=== PATIENT | male | born 1935 | race Caucasian/White ===

== ENCOUNTER → 2016-11-25 | Outpatient (CLI) | payer OTHER | LOC: FLAB 11:46 | PROVIDERS: ATTEND Family Medicine | DX: R06.02 Shortness of breath (principal) ==

== ENCOUNTER → 2017-01-12 | Outpatient (CLI) | payer OTHER | LOC: FIMAGING 08:47 | PROVIDERS: ATTEND Family Medicine | DX: J45.909 Unspecified asthma, uncomplicated (principal); I25.10 Atherosclerotic heart disease of native coronary artery without angina pectoris ==

== ENCOUNTER 2017-02-08 06:14 | Emergency (ER) | payer OTHER ==
[2017-02-08 06:24] VITALS: TEMP 97.7
--- NOTE | 2017-02-08 06:44 | EDPHY ---
H & P Stated Complaint: SOB while sleeping Source: Patient Exam Limitations: No limitations - Personal History Current Tetanus/Diphtheria Vaccine: Unsure Current Tetanus Diphtheria and Acellular Pertussis (TDAP): Unsure - Medical/Surgical History Hx Asthma: No Hx Chronic Respiratory Disease: No Hx Diabetes: Yes Hx Cardiac Disease: Yes Hx Renal Disease: No Hx Cirrhosis: No Hx Alcoholism: No Hx HIV/AIDS: No Hx Splenectomy or Spleen Trauma: No Other PMH: HTN, hypothyroid, ulcerative colitis, diabetes - Social History Smoking Status: Former smoker Time Seen by Provider: 02/08/17 06:24 HPI/ROS: HPI The patient presents with multiple episodes of shortness of breath over the course of this evening that have prevented him from sleeping. He feels like as soon as he falls asleep he stops breathing in awake and short of breath. He tried sleeping in a chair, however this did not help. He now feels fine. He has had ongoing dyspnea over the last several months. He is being treated by his primary care doctor for this and has a nebulizer for albuterol and also Singulair. He has been feeling better with these treatments. He has been evaluated by Card[facility] and had echocardiogram performed on January 31 with demonstrated EF of 55% with [id number] MR. He also had a Holter monitor performed on January 20 and this demonstrated normal sinus rhythm with frequent type 1 Wenckebach occurring. He has had a nuclear scan performed in December of 2014 which was relatively normal. He is awaiting a pulmonology appointment with Dr. Coyle on March 09. REVIEW OF SYSTEMS Constitutional: No fever, no chills. Eyes: No discharge. ENT: No sore throat. Cardiovascular: No chest pain, no palpitations. Respiratory: No cough, no shortness of breath. Gastrointestinal: No abdominal pain, no vomiting. Genitourinary: No hematuria. Musculoskeletal: No back pain. Skin: No rashes. Neurological: No headache. PMHx: Hypertension, hyperlipidemia, diabetes, hypothyroidism, ulcerative colitis Soc Hx: Former smoker, housed PHYSICAL General Appearance: Alert, no distress Eyes: Pupils equal and round no pallor or injection ENT, Mouth: Mucous membranes moist Respiratory: There are no retractions, lungs are clear to auscultation Cardiovascular: Regular rate and rhythm Gastrointestinal: Abdomen is soft and non-tender, no masses, bowel sounds normal Neurological: A&O, moves all extremities Skin: Warm and dry, no rashes Musculoskeletal: Neck is supple non tender Extremities: symmetrical, full range of motion Psychiatric: Patient is oriented X 3, there is no agitation (Latrice Montilla) Constitutional: Initial Vital Signs Temperature (C) 36.5 C 02/08/17 06:21 Heart Rate 86 02/08/17 06:21 Respiratory Rate 16 02/08/17 06:21 Blood Pressure 127/84 H 02/08/17 06:21 O2 Sat (%) 95 02/08/17 06:21 O2 Delivery Mode Room Air Allergies/Adverse Reactions: piperacillin sodium [From Zosyn] Allergy (Unknown, Verified 09/05/10 18:22) Hives tazobactam sodium [From Zosyn] Allergy (Unknown, Verified 09/05/10 18:22) Hives Sulfa (Sulfonamide Antibiotics) Allergy (Verified 02/08/17 06:19) Home Medications: Medication Instructions Recorded Aspirin [Aspirin 81mg (*)] 81 mg PO HS 05/10/16 Omeprazole [Prilosec 20 mg] 20 mg PO DAILY PRN 05/10/16 metFORMIN HCL [Glucophage 500 mg 500 mg PO BIDMEAL 05/10/16 (*)] Levothyroxine [Synthroid 75 mcg 100 mcg PO DAILY06 #30 tab 05/11/16 (*)] Lisinopril [Zestril 2.5 mg (*)] 2.5 mg PO HS 05/11/16 Multivitamins [Multivitamin (*)] 1 each PO DAILY 05/11/16 Lane-3 Fatty Acids [Fish Oil 1000 1,000 mg PO DAILY 05/11/16 mg (*)] Simvastatin [Zocor] 20 mg PO HS 05/11/16 Albuterol 02/08/17 Singulair 02/08/17 Medical Decision Making - Diagnostics EKG Interpretation: EKG: Complete interpretation has been separately recorded in the [facility] archive. Summary impression: Mobitz type 1 av block (Latrice Montilla) Imaging Results: Imaging Impressions Chest X-Ray 02/08/17 06:37 Impression: 1. No pneumonia or pulmonary edema. 2. Consider chest two views when the patient's medical condition permits. Chest/Thorax CTA 02/08/17 07:18 Impression: 1. No definite pulmonary thromboemboli. 2. Atherosclerotic aorta without aneurysm or dissection. 3. Coronary atherosclerosis. 4. Chronic bronchitis/airways disease. 5. No pneumonia, pleural effusion or pneumothorax. 6. On the sales engagement manager view, there are dilated loops of small bowel with air-fluid levels which may represent ileus or small bowel obstruction. Findings and recommendations discussed with Emergency Department physician, Nighat Sabillon at 0842 hour, 02/08/2017. Final report concurs with initial preliminary interpretation. Chest x-ray one view shows reactive airways disease, no infiltrate, interpreted by me, radiology interpretation is pending. (Latrice Montilla) ED Course/Re-evaluation: This patient was signed over to me at shift change to check the CT pulmonary angiogram. If normal the patient can be discharged home. CT pulmonary angiogram is normal and the patient is asymptomatic. He already has an appointment to follow up with a dental coordinator. I feel that this is an appropriate plan for the patient. (Nighat Sabillon) Differential Diagnosis: This is an 81-year-old male with hypertension, hyperlipidemia, diabetes, hypothyroidism who presents from home with shortness of breath at night. Feels that when he falls asleep he awakens and has to catch his breath. He has been evaluated for dyspnea for the last several months by his primary care doctor and Cardiology. Is currently using albuterol and Symbicort for his symptoms. This seems to be helping. He has never had symptoms at night before that is what brought him into the emergency room. He has undergone recent Holter monitor testing which did reveal a Mobitz type 1 second-degree heart block. Recent echo shows a normal ejection fraction. Differential diagnosis includes obstructive sleep apnea, reactive airways disease, anxiety, less likely ACS or PE. Plan for EKG, chest x-ray, basic laboratory testing including troponin and D- dimer in the emergency room. At approximately 7:00 a.m., the case was signed out to the oncoming provider Dr. Sabillon. The patient is awaiting his laboratory testing. If it is normal, he can be discharged home. (Latrice Montilla) - Data Points Laboratory Results: Laboratory Results 02/08/17 06:55 02/08/17 06:55 02/08/17 02/08/17 02/08/17 06:55 06:55 06:55 WBC 7.10 10^3/uL 10^3/uL (3.80-9.50) RBC 4.89 10^6/uL 10^6/uL (4.40-6.38) Hgb 14.3 g/dL g/dL (13.7-17.5) Hct 42.3 % % (40.0-51.0) MCV 86.5 fL fL (81.5-99.8) MCH 29.2 pg pg (27.9-34.1) MCHC 33.8 g/dL g/dL (32.4-36.7) RDW 14.7 % % (11.5-15.2) Plt Count 289 10^3/uL 10^3/uL (150-400) MPV 10.3 fL fL (8.7-11.7) Neut % (Auto) 76.3 % H % (39.3-74.2) Lymph % (Auto) 10.7 % L % (15.0-45.0) [place] % (Auto) 8.9 % % (4.5-13.0) Eos % (Auto) 3.1 % % (0.6-7.6) Baso % (Auto) 0.7 % % (0.3-1.7) Nucleat RBC Rel Count 0.0 % % (0.0-0.2) Absolute Neuts (auto) 5.42 10^3/uL 10^3/uL (1.70-6.50) Absolute Lymphs (auto) 0.76 10^3/uL L 10^3/uL (1.00-3.00) Absolute Monos (auto) 0.63 10^3/uL 10^3/uL (0.30-0.80) Absolute Eos (auto) 0.22 10^3/uL 10^3/uL (0.03-0.40) Absolute Basos (auto) 0.05 10^3/uL 10^3/uL (0.02-0.10) Absolute Nucleated RBC 0.00 10^3/uL 10^3/uL (0-0.01) Immature Gran % 0.3 % % (0.0-1.1) Immature Gran # 0.02 10^3/uL 10^3/uL (0.00-0.10) D-Dimer 0.89 ug/mLFEU H ug/mLFEU (0.00-0.50) Sodium 140 mEq/L mEq/L (134-144) Potassium 4.4 mEq/L mEq/L (3.5-5.2) Chloride 107 mEq/L mEq/L (97-110) Carbon Dioxide 20 mEq/l L mEq/l (22-31) Anion Gap 13 mEq/L mEq/L (8-16) BUN 15 mg/dL mg/dL (7-23) Creatinine 1.1 mg/dL mg/dL (0.7-1.3) Estimated GFR > 60 Glucose 114 mg/dL H mg/dL (70-100) Calcium 9.3 mg/dL mg/dL (8.5-10.4) Troponin I < 0.012 ng/mL ng/mL (0-0.034) Medications Given: Discontinued Medications Sodium Chloride (Ns) 1,000 mls @ 0 mls/hr IV ONCE ONE PRN Reason: Wide Open Stop: 02/08/17 08:25 Last Admin: 02/08/17 07:40 Dose: 1,000 mls Departure - Departure Disposition: Home, Routine, Self-Care Clinical Impression: Shortness of breath Condition: Good Instructions: Dyspnea (ED) Additional Instructions: Do not take metformin for 48 hours. Please follow-up with the dental coordinator. You should return to the emergency room if your worse in any way. Referrals: IVAN IVY [Primary Care Provider] - As per Instructions
[2017-02-08 07:04] LABS: % IMMATURE GRANULYOCYTES 0.3 % (0.0-1.1); ABSOLUTE IMMATURE GRANULOCYTES 0.02 10^3/uL (0.00-0.10); ADD DIFF? NO; ADD MORPH? NO; ADD SCAN? NO; ATYPICAL LYMPHOCYTE FLAG 20 (0-99); FRAGMENT RBC FLAG 0 (0-99); HEMATOCRIT 42.3 % (40.0-51.0); HEMOGLOBIN 14.3 g/dL (13.7-17.5); LEFT SHIFT FLG 0 (0-99); LIPEMIA HEMOLYSIS FLAG 90 (0-99); MEAN CELL HEMOGLOBIN 29.2 pg (27.9-34.1); MEAN CELL HEMOGLOBIN CONCENTR. 33.8 g/dL (32.4-36.7); MEAN CELL VOLUME 86.5 fL (81.5-99.8); MEAN PLATELET VOLUME 10.3 fL (8.7-11.7); PLATELET CLUMPS FLAG 10 (0-99); PLATELET COUNT 289 10^3/uL (150-400); RED BLOOD CELL COUNT 4.89 10^6/uL (4.40-6.38); RED CELL DISTRIBUTION WIDTH 14.7 % (11.5-15.2)
[2017-02-08 07:16] LABS: ANION GAP 13 mEq/L (8-16); CALCIUM 9.3 mg/dL (8.5-10.4); CARBON DIOXIDE 20 mEq/l (22-31); CHLORIDE 107 mEq/L (97-110); CREATININE 1.1 mg/dL (0.7-1.3); GLOMERULAR FILTRATION RATE > 60; GLUCOSE 114 mg/dL (70-100); POTASSIUM 4.4 mEq/L (3.5-5.2); SODIUM 140 mEq/L (134-144)
[2017-02-08] MEDS ORDERED: IOPAMIDOL (ISOVUE 370) 100 ML BTL IV ONE (07:20)
[2017-02-08 07:28] LABS: TROPONIN I < 0.012 ng/mL (0-0.034)
--- NOTE | 2017-02-08 07:38 | CPEKG ---
Heart Rate: 62 RR Interval: 968 QRSD Interval: 84 QT Interval: 412 QTC Interval: 419 P [place]: 52 QRS [place]: -12 T Wave [place]: 17 EKG Severity - ABNORMAL ECG - EKG Impression: SINUS RHYTHM EKG Impression: MOBITZ I AV BLOCK (WENCKEBACH) EKG Impression: LOW VOLTAGE THROUGHOUT Electronically Signed By: Nighat Sabillon 08-Feb-2017 15:15:02
[2017-02-08] MEDS ORDERED: NS 1,000 ML IV ONE (08:24)
[2017-02-08 09:10] VITALS: BP 131/57; PULSE 81; RESP 16; O2SAT 90
== END 2017-02-08 09:10 | disposition home or self-care (01) ==
LOC: EEVIPCON 06:14
DX: R06.02 Shortness of breath (principal); I10 Essential (primary) hypertension; E11.65 Type 2 diabetes mellitus with hyperglycemia; Z87.891 Personal history of nicotine dependence; Z79.82 Long term (current) use of aspirin; Z79.84 Long term (current) use of oral hypoglycemic drugs
CPT/HCPCS: 71010; 71275; 93005; 96360; 99285; Q9967

== ENCOUNTER → 2018-06-13 | Outpatient (CLI) | payer OTHER ==
[~2018-06-13] MED LIST: IOPAMIDOL (ISOVUE-300) 100 ML BTL ONE
== END ==
LOC: FIMAGING 08:52
PROVIDERS: ATTEND Internal Medicine Gastroenterology
DX: R10.31 Right lower quadrant pain (principal)
CPT/HCPCS: 74177; Q9967; 82565-PO

== ENCOUNTER 2018-06-14 12:46 | Inpatient (IN) | payer OTHER ==
[2018-06-14] MEDS ORDERED: NS 1,000 ML IV ONE ×2 (12:52→16:44)
[2018-06-14] MEDS ORDERED: ONDANSETRON 4 MG/2 ML VIAL IVP ONE (12:52)
--- NOTE | 2018-06-14 12:56 | EDPHY ---
H & P Time Seen by Provider: 06/14/18 12:57 HPI/ROS: CHIEF COMPLAINT: Abdominal pain, hypotension, vomiting diarrhea HISTORY OF PRESENT ILLNESS: Patient is an 82-year-old man with a history of ileostomy secondary to ulcerative colitis [address] Sommer. Also history of bladder cancer, chronic kidney disease and borderline diabetes. He has been having abdominal pain for the last few days and yesterday had an outpatient CT scan ordered by Dr. Patricia that revealed numerous loops of the bowel the with blurred margins and surrounding edema and the extra luminal air. Also free air in the mid pelvis. The patient's son states that he went over to check on him today and found that the ostomy bag had come open and there was stool all over the house and the patient was slipping and falling in it. The patient he seems confused. No history of fever. The patient states he did vomit once yesterday and today. He complains primarily of abdominal pain. He denies chest pain or shortness of breath. Severity: Moderate Modifying factors: None REVIEW OF SYSTEMS: Constitutional: denies: chills, fever, recent illness, recent injury EENTM: denies: blurred vision, double vision, nose congestion Respiratory: denies: cough, shortness of breath Cardiac: denies: chest pain, irregular heart rate, lightheadedness, palpitations Gastrointestinal/Abdominal: See HPI Genitourinary: denies: dysuria, frequency, hematuria, pain Musculoskeletal: denies: joint pain, muscle pain Skin: denies: lesions, rash, jaundice, bruising Neurological: denies: headache, numbness, paresthesia, tingling, dizziness, weakness Hematologic/Lymphatic: denies: blood clots, easy bleeding, easy bruising Immunologic/allergic: denies: HIV/AIDS, transplant 10 systems reviewed and negative except as noted EXAM: GENERAL: Well-appearing, well-nourished and in no acute distress. HEAD: Atraumatic, normocephalic. EYES: Pupils equal round and reactive to light, extraocular movements intact, sclera anicteric, conjunctiva are normal. ENT: TMs normal, nares patent, oropharynx clear without exudates. Moist mucous membranes. NECK: Normal range of motion, supple without lymphadenopathy or JVD. LUNGS: Breath sounds clear to auscultation bilaterally and equal. No wheezes rales or rhonchi. HEART: Regular rate and rhythm without murmurs, rubs or gallops. ABDOMEN: Mild tenderness diffusely. Ostomy in place. Dark loose stool with the clip gone from the end of the bag. BACK: No CVA tenderness, no spinal tenderness, step-offs or deformities EXTREMITIES: Normal range of motion, no pitting or edema. No clubbing or cyanosis. NEUROLOGICAL: Cranial nerves II through XII grossly intact. Normal speech, normal gait. 5/5 strength, normal movement in all extremities, normal sensation , normal reflexes PSYCH: Normal mood, normal affect. SKIN: Warm, dry, normal turgor, no visible rashes or lesions. Source: Patient, EMS, Old records Exam Limitations: No limitations - Medical/Surgical History Hx Asthma: No Hx Chronic Respiratory Disease: No Hx Diabetes: Yes Hx Cardiac Disease: Yes Hx Renal Disease: No Hx Cirrhosis: No Hx Alcoholism: No Hx HIV/AIDS: No Hx Splenectomy or Spleen Trauma: No Other PMH: HTN, hypothyroid, ulcerative colitis, diabetes - Family History Significant Family History: No pertinent family hx - Social History Smoking Status: Former smoker Alcohol Use: Sober Drug Use: None Constitutional: Initial Vital Signs Temperature (C) 36.1 C 06/14/18 13:06 Heart Rate 103 H 06/14/18 13:06 Respiratory Rate 36 H 06/14/18 13:06 Blood Pressure 88/58 L 06/14/18 13:06 O2 Sat (%) 93 06/14/18 13:06 O2 Delivery Mode Room Air Allergies/Adverse Reactions: piperacillin sodium [From Zosyn] Allergy (Unknown, Verified 09/05/10 18:22) Hives tazobactam sodium [From Zosyn] Allergy (Unknown, Verified 09/05/10 18:22) Hives Sulfa (Sulfonamide Antibiotics) Allergy (Verified 02/08/17 06:19) Home Medications: Medication Instructions Recorded metFORMIN HCL [Glucophage 500 mg 500 mg PO BIDMEAL 05/10/16 (*)] Levothyroxine [Synthroid 75 mcg 100 mcg PO DAILY06 #30 tab 05/11/16 (*)] Lisinopril [Zestril 2.5 mg (*)] 2.5 mg PO HS 05/11/16 Simvastatin [Zocor] 20 mg PO HS 05/11/16 Albuterol 02/08/17 Singulair 02/08/17 Medical Decision Making ED Course/Re-evaluation: The patient is hypotensive and tachycardic. We began resuscitation. I discussed the CT scan with Dr. Sommer who recommends admission ICU to the medical service and he will come to evaluate. 1:15 p.m. I spoke with the hospital service who will admit to the ICU. 1:[address] Sommer is here in the ER evaluating the patient. Differential Diagnosis: Partial list of the Differential diagnosis considered include but were not limited to; bowel perforation, ischemia, obstruction, dehydration, sepsis and although unlikely based on the history and physical exam, I also considered volvulus. Critical Care Time: Critical care time spent by me, Dr. Ladd exclusive with this patient was 35 minutes, exclusive of the PA time exclusive of procedures. The organ system that was at risk was gastrointestinal and I gave IV fluids, resuscitation, consultation and admission to prevent worsening of the patient's condition - Data Points Medications Given: Ceftriaxone Sodium/Dextrose (Rocephin 1 Gm (Premix)) 50 mls @ 100 mls/hr IV DAILY NOE PRN Reason: Protocol Stop: 07/14/18 13:29 Last Admin: 06/14/18 13:30 Dose: 50 mls Metronidazole/Sodium Chloride (Flagyl 500 Mg (Premix)) 100 mls @ 100 mls/hr IV Q8HRS NOE PRN Reason: Protocol Stop: 07/14/18 13:59 Last Admin: 06/14/18 13:50 Dose: 100 mls Discontinued Medications Sodium Chloride (Ns) 1,000 mls @ 0 mls/hr IV EDNOW ONE; Wide Open PRN Reason: Protocol Stop: 06/14/18 12:53 Last Admin: 06/14/18 13:04 Dose: 1,000 mls Sodium Chloride (Ns) 1,900 mls @ 3,800 mls/hr 30 ml/kg infuse over 30 min ( 1900 ml) IV EDNOW ONE PRN Reason: Protocol Stop: 06/14/18 13:42 Last Admin: 06/14/18 13:49 Dose: 1,900 mls Departure - Departure Disposition: [facility] Acute Condition: Critical
[2018-06-14] MEDS ORDERED: NS 1,900 ML IV ONE (13:13)
[2018-06-14] MEDS ORDERED: HYDROmorphONE/DILAUDID 1 MG/ML INJ IVP PRN (13:52)
[2018-06-14] MEDS ORDERED: ACETAMINOPHEN 650 MG SUPP PR PRN (13:52)
[2018-06-14] MEDS ORDERED: ONDANSETRON 4 MG/2 ML VIAL IVP PRN (13:52)
[2018-06-14 14:03] LABS: PLATELET COUNT 300 10^3/uL (150-400)
[2018-06-14 14:12] LABS: INR 1.33 (0.83-1.16); PROTIME(PATIENT) 16.7 SEC (12.0-15.0)
--- NOTE | 2018-06-14 15:08 | PDGENHP ---
History and Physical - Chief Complaint Abdominal Pain - History of Present Illness Manuel Woody is a 82 yo M with a PMHx of UC s/p ileostomy, bladder cancer, CKF, DM who presents to [facility] for abdominal pain. History obtained from patient and family, son/daughter in law at bedside. They report that patient has been experiencing abdominal pain for months. They report that he has been seen by multiple physicians without any diagnosis or improvement. Patient reports pain is diffuse, non-radiating, sharp in quality, no changed with food intake. He denies any diarrhea, constipation, melena, hematochezia. He did have episode of nausea with non-bilious, non-bloody emesis. He denies any chest pain, SOB, fevers, dysuria, cough. He does reports having chills. History Information - Allergies/Home Medication List Allergies/Adverse Reactions: piperacillin sodium [From Zosyn] Allergy (Unknown, Verified 09/05/10 18:22) Hives tazobactam sodium [From Zosyn] Allergy (Unknown, Verified 09/05/10 18:22) Hives Sulfa (Sulfonamide Antibiotics) Allergy (Verified 02/08/17 06:19) Home Medications: metFORMIN HCL [Glucophage 500 mg (*)] 500 mg PO BIDMEAL 05/10/16 [Last Taken 10/21 18:00] Simvastatin [Zocor] 20 mg PO HS 05/11/16 [Last Taken 05/10/16] Montelukast Sodium [Singulair 10 mg (*)] 10 mg PO DAILY@1800 02/08/17 [Last Taken Unknown] Lisinopril [Zestril 5 mg (*)] 5 mg PO DAILY 06/14/18 [Last Taken Unknown] I have personally reviewed and updated: family history, medical history, social history, surgical history - Past Medical History diabetes type 2 Additional medical history: CKD, UC, Bladder cancer, CKD - Surgical History Additional surgical history: UC s/p ileostomy - Family History Positive for: non-pertinent - Social History Smoking Status: Former smoker Review of Systems Review of Systems: ROS: 10pt was reviewed & negative except for what was stated in HPI & below Physical Exam Physical Exam: Temp Pulse Resp BP Pulse Ox 36.5 C 111 H 22 H 99/63 L 98 06/14/18 14:29 06/14/18 14:29 06/14/18 14:29 06/14/18 14:29 06/14/18 14:29 Constitutional: chronically ill appearing, cachectic Eyes: anicteric sclera Ears, Nose, Mouth, Throat: dry mucous membranes Cardiovascular: tachycardia Respiratory: no respiratory distress, clear to auscultation Gastrointestinal: tenderness, other (Ileostomy in place with stool ), No guarding, No rebound, No distension Genitourinary: no bladder tenderness Skin: other (Pale), No normal color Musculoskeletal: no muscle tenderness Neurologic: AAOx3 Psychiatric: interacting appropriately Lab Data & Imaging Review 06/15/18 04:20 06/15/18 04:20 WBC 13.71 10^3/uL (3.80-9.50) H 06/14/18 13:40 RBC 5.47 10^6/uL (4.40-6.38) 06/14/18 13:40 Hgb 15.4 g/dL (13.7-17.5) 06/14/18 13:40 Hct 46.3 % (40.0-51.0) 06/14/18 13:40 MCV 84.6 fL (81.5-99.8) 06/14/18 13:40 MCH 28.2 pg (27.9-34.1) 06/14/18 13:40 MCHC 33.3 g/dL (32.4-36.7) 06/14/18 13:40 RDW 14.7 % (11.5-15.2) 06/14/18 13:40 Plt Count 300 10^3/uL (150-400) 06/14/18 13:40 MPV 11.4 fL (8.7-11.7) 06/14/18 13:40 Neut % (Auto) Not Reported 06/14/18 13:40 Lymph % (Auto) Not Reported 06/14/18 13:40 [place] % (Auto) Not Reported 06/14/18 13:40 Eos % (Auto) Not Reported 06/14/18 13:40 Baso % (Auto) Not Reported 06/14/18 13:40 Nucleat RBC Rel Count Not Reported 06/14/18 13:40 Absolute Neuts (auto) Not Reported 06/14/18 13:40 Absolute Lymphs (auto) Not Reported 06/14/18 13:40 Absolute Monos (auto) Not Reported 06/14/18 13:40 Absolute Eos (auto) Not Reported 06/14/18 13:40 Absolute Basos (auto) Not Reported 06/14/18 13:40 Absolute Nucleated RBC Not Reported 06/14/18 13:40 Immature Gran % Not Reported 06/14/18 13:40 Seg Neutrophils % 72.9 % 06/14/18 13:40 Band Neutrophils % 9.4 % 06/14/18 13:40 Lymphocytes % 5.2 % 06/14/18 13:40 Monocytes % 10.4 % 06/14/18 13:40 Eosinophils % 0.0 % 06/14/18 13:40 Basophils % 0.0 % 06/14/18 13:40 Metamyelocytes % 2.1 % 06/14/18 13:40 Myelocytes % 0.0 % 06/14/18 13:40 Promyelocytes % 0.0 % 06/14/18 13:40 Blast Cells % 0.0 % 06/14/18 13:40 Immature Gran # Not Reported 06/14/18 13:40 Absolute Seg Neuts 9.94 10^3/uL (1.70-6.50) H 06/14/18 13:40 Absolute Band Neuts 1.28 10^3/uL (0.00-0.70) H 06/14/18 13:40 Absolute Lymphocytes 0.71 10^3/uL (1.00-3.00) L 06/14/18 13:40 Absolute Monocytes 1.42 10^3/uL (0.30-0.80) H 06/14/18 13:40 Absolute Eosinophils 0.00 10^3/uL (0.03-0.40) L 06/14/18 13:40 Absolute Basophils 0.00 10^3/uL (0.02-0.10) L 06/14/18 13:40 Absolute Metamyelocyte 0.29 10^3/mL (0.00-0.00) H 06/14/18 13:40 Absolute Myelocytes 0.00 10^3/mL (0.00-0.00) 06/14/18 13:40 Absolute Promyelocytes 0.00 10^3/uL (0.00-0.00) 06/14/18 13:40 Absolute Plasma Cells 0.00 10^3/uL (0.00-0.00) 06/14/18 13:40 Nucleated RBCs 0 /100 WBC (0-0) 06/14/18 13:40 Absolute Blast Cells 0.00 10^3/uL (0.00-0.00) 06/14/18 13:40 Plasma Cells % 0.0 % 06/14/18 13:40 Platelet Estimate ADEQUATE (ADEQ) 06/14/18 13:40 Echinocytes 1+ H 06/14/18 13:40 PT 16.7 SEC (12.0-15.0) H 06/14/18 13:40 INR 1.33 (0.83-1.16) H 06/14/18 13:40 APTT 22.4 SEC (23.0-38.0) L 06/14/18 13:40 VBG Lactic Acid 9.4 mmol/L (0.7-2.1) H 06/14/18 13:40 Sodium REJ 06/14/18 13:40 Potassium REJ 06/14/18 13:40 Chloride REJ 06/14/18 13:40 Carbon Dioxide REJ 06/14/18 13:40 Anion Gap REJ 06/14/18 13:40 BUN REJ 06/14/18 13:40 Creatinine REJ 06/14/18 13:40 Estimated GFR REJ 06/14/18 13:40 Glucose REJ 06/14/18 13:40 Calcium REJ 06/14/18 13:40 Total Bilirubin REJ 06/14/18 13:40 Conjugated Bilirubin REJ 06/14/18 13:40 Unconjugated Bilirubin REJ 06/14/18 13:40 AST REJ 06/14/18 13:40 ALT REJ 06/14/18 13:40 Alkaline Phosphatase REJ 06/14/18 13:40 Total Protein REJ 06/14/18 13:40 Albumin REJ 06/14/18 13:40 Lipase REJ 06/14/18 13:40 Assessment & Plan Assessment: Septic Shock - Likely source- intra-abdominal free air, likely bowel perforation seen on CT - MAP 69 on admission with tachycardia, leukocytosis - LA 9.4 on admission - S/p 30 cc/kg IVF (1.9 L) in ED, plus 1 additional L - Additional IVF PRN - Placed order for PICC placement, if MAP <65 start Levophed for pressor support - S/p Ceftriaxone/Flagyl in ED, will continue for now - Blood cultures x2 collected in ED, f/u results - Surgery consulted in ED, f/u recommendations - Continue to trend LA q4 hours Free Air in Abdomen - Seen on CT performed yesterday - Surgery consulted for further management of likely bowel perforation - NPO for now - Tx of sepsis as above ADENIKE on CKD - Cr 2.5 on admission, baseline 1.1-1.3 - In setting of septic shock, hypovolemic - Continue to monitor BMP, I/O, avoid nephrotoxic agents UC s/p Ileostomy - Not currently on medical tx per chart review - Management of bowel perforation as above Hypothyroidism - Continue home Levothyroxine once able to tolerate PO - Will check TSH HTN - Holding BP medications (Lisinopril) given sepsis as above T2DM - Holding home Metformin - Order SSI when able to tolerate diet HLD - Continue home Simvastatin when able to tolerate diet FEN: NPO, s/p 2.9 L in ED, additional IVF PRN Code: FULL Dispo: Admit to ICU A total of 45 minutes of critical care time was spent in the evaluation and management of this patient.
[2018-06-14] MEDS ORDERED: ALTEPLASE 2 MG VIAL IVP PRN (15:52)
[2018-06-14] MEDS: NS 1,000 ML IV SCH ×2 (16:30→21:17)
--- NOTE | 2018-06-14 16:49 | GCON ---
CRITICAL-CARE CONSULTATION. DATE OF CONSULTATION: 06/14/2018 HISTORY OF PRESENT ILLNESS: This patient is an 82-year-old male who has history of ulcerative coliti s and underwent colectomy in the past with ileostomy placement, who has been having ongoing abdominal pain over the last several weeks. Part of his outpatient workup included a CT scan that was perform ed yesterday that showed areas of blurred margins and edema along with free air. However, the patien t did not have any trouble apparently until today when he had increasing abdominal pain. His ileosto my bag fell off. There was stool all over his apartment. His family found him that way. He was bro ught to the emergency department where his blood pressure was 88/58, was given IV fluids, responded q uite well to a blood pressure 119/57. He was afebrile, but he had a white count of 13.7 and a lactat e of 9.4. He was evaluated by Dr. Sommer and apparently is scheduled for surgery later on this evenin g. He denies any pulmonary or cardiac symptoms. He has not been taking much oral intake as of late and feels that he has been dehydrated. REVIEW OF SYSTEMS: Otherwise negative. PAST MEDICAL HISTORY: Includes: 1. Bladder cancer in the past. 2. Ulcerative colitis. 3. Borderline diabetes. 4. Hypertension. 5. Hyperlipidemia. 6. Hypothyroidism. 7. Gastroesophageal reflux disease. 8. Second-degree heart block. 9. Seizure in the distant past. 10. Chronic kidney disease, not well documented but listed. 11. Allergic rhinitis and a right lower lobe granuloma seen previously. PAST SURGICAL HISTORY: Includes colectomy, ileostomy about 20 years ago, shoulder surgery, bladder t umor removal. SOCIAL HISTORY: He has about 15-30 pack-year smoking history but quit in 2001. ALLERGIES: Include Zosyn and sulfa. FAMILY HISTORY: Includes sleep apnea. CURRENT MEDICATIONS: Include Tylenol, ceftriaxone, Flagyl, and Zofran as well as Dilaudid p.r.n. PHYSICAL EXAM: VITAL SIGNS: He had a temperature low of 35.8, currently 36.5, blood pressure of 99/ 63, heart rate of 111, sinus tachycardia, respirations 22, oxygen saturation 98% on room air. GENERA L: He is an ill-appearing elderly man who was in no obvious distress but looked quite dehydrated. HE ENT: Pupils equally round and reactive to light. Nonicteric and noninjected. Mucous membranes were dry without erythema or exudate. NECK: Supple without adenopathy or jugular vein distention. LUNGS : Breath sounds were diminished but clear to auscultation bilaterally without wheeze or rales. HEART : Regular rate and rhythm without murmurs, rubs, gallops. His ileostomy bag was in place at this po int, and he was otherwise soft without rebound, but did have diffuse tenderness particularly in the m id epigastric region. There were bowel tones but they were hypoactive. EXTREMITIES: Also looked dry skin but was otherwise without clubbing, cyanosis or edema. NEUROLOGIC: Exam nonfocal, though he was mildly somnolent. SKIN: Dry, as described above. OBJECTIVE DATA: Includes a white count of 13.7, hematocrit 46, platelets of 300. Complete metabolic panel was rejected for reasons that are unclear. VBG lactic acid was 9.4. Coags showed an INR 1.3. ASSESSMENT AND PLAN: 1. Probable bowel perforation with peritonitis and abdominal sepsis. He did respond to fluids quite well. I think that a PICC line would be quite reasonable in this patient. We will have to be cauti ous about IV fluids. He did have an echocardiogram in January 2017 showing mild to moderate mitral and aortic regurgitation but ejection fraction of 55%. I do not think this is a cardiac cause with his b orderline blood pressure, story is more likely dehydration and sepsis. He is getting antibiotics at this time. Blood cultures have been drawn and are pending and definitive surgery is pending for late r on this evening. 2. Possible asthma. He has had spirometry twice in the past, both of which showed an obstructive pa ttern with an FEV1 of about 60% predicted. I do not think his smoking has been much of a problem and he does have some allergies to support this. At this point I would certainly use albuterol as neede d only. He is already getting Singulair which of course will be held since he is n.p.o. for now. Sotero is is more directed toward his allergies. 3. Diabetes. I expect this to be more of an issue postoperatively. We will try to maintain blood s ugars of less than 180 afterwards. A total of about 35 minutes of critical care time was required in the evaluation and management of sotero is patient. /[id number]/MODL
--- NOTE | 2018-06-14 17:22 | PDMN ---
Medical Necessity Medical necessity: Pt meets inpt criteria per MD order and MCG M-160, Sepsis and Other Febrile Illness, without Focal Infection. 82 y/o presenting w/ increasing abdominal pain, admitted w/probable bowel perforation, peritonitis, and sepsis. VBG lactic acid 9.4, BUN/creatinine 45/2.5, WBC's 13.7, tachycardia , hypotensive w/SBP in 80's. NPO, surgery consult pending, IVF, IV ABX's, blood cultures pending, ICU monitoring and treatment, anticipate>2MN for management of above.
[2018-06-14] MEDS: NOREPINEPHRINE BITARTRATE 4 MG in NS 500 ML IV SCH (19:40)
[2018-06-14 20:11] LABS: PLATELET COUNT 306 10^3/uL (150-400)
[2018-06-14] MEDS ORDERED: ALBUMIN 5% 500 ML BOTTLE IV ONE (20:36)
[2018-06-14] MEDS ORDERED: ALBUMIN 5% 1,000 ML IV ONE (21:00)
[2018-06-15] MEDS: NOREPINEPHRINE BITARTRATE 4 MG in NS 500 ML IV SCH ×3 (02:24→23:03)
[2018-06-15] MEDS: NS 1,000 ML IV SCH ×3 (04:55→23:03)
[2018-06-15 05:01] LABS: PLATELET COUNT 231 10^3/uL (150-400)
[2018-06-15] MEDS: VASOPRESSIN 25 UNIT in NS 250 ML IV SCH ×2 (11:58→23:03)
[2018-06-15] MEDS ORDERED: PROTOCOL POTASSIUM 1 DOSE MISC PRN (12:36)
[2018-06-15] MEDS ORDERED: PROTOCOL MAGNESIUM 1 DOSE IV PRN (12:36)
--- NOTE | 2018-06-15 12:42 | HOSPPROG ---
Hospitalist Progress Note Assessment/Plan: Septic Shock - Likely source- intra-abdominal free air, likely bowel perforation seen on CT - MAP 69 on admission with tachycardia, leukocytosis - LA 9.4 on admission - S/p 30 cc/kg IVF (1.9 L) in ED, plus 1 additional L - s/p PICC placement - cont Ceftriaxone/Flagyl - Blood cultures x2 collected in ED, f/u results Bowel Perforation/Peritonitis -Surgery following -abx per above -NPO -Barium scan todays shows no perforation ADENIKE on CKD - Cr 2.5 on admission, baseline 1.1-1.3 - In setting of septic shock, hypovolemic - Continue to monitor BMP, I/O, avoid nephrotoxic agents UC s/p Ileostomy - Not currently on medical tx per chart review - Management of bowel perforation as above Hypothyroidism - Continue home Levothyroxine once able to tolerate PO - Will check TSH HTN - Holding BP medications (Lisinopril) given sepsis as above T2DM - Holding home Metformin - Order SSI when able to tolerate diet HLD - Continue home Simvastatin when able to tolerate diet FEN: NPO, s/p 2.9 L in ED, additional IVF PRN Code: FULL Plan: cont antibiotics Await Surgery reccs cont Pressors as needed. Target BP above 90 mmHg systolic Replace K per protocol Will decrease IVF to 100ml/hr total critical care time in this pt with improving sepsis and peritonitis is 32 mins. D/W ICU team during rounds. Subjective: no cp or sob. feels better. BP is improving. Still on pressors Objective: Vital Signs Temp Pulse Resp BP Pulse Ox 37.1 C 110 H 26 H 94/59 L 94 06/15/18 12:00 06/15/18 12:00 06/15/18 12:00 06/15/18 12:00 06/15/18 12:00 Laboratory Results 06/15/18 04:20 06/15/18 04:20 06/14/18 06/15/18 06/16/18 05:59 05:59 05:59 Intake Total 6969 Output Total 2110 1685 Balance 4859 -1685 PT 16.7 SEC (12.0-15.0) H 06/14/18 13:40 INR 1.33 (0.83-1.16) H 06/14/18 13:40 - Physical Exam Constitutional: no apparent distress Eyes: PERRL, EOMI Ears, Nose, Mouth, Throat: moist mucous membranes, hearing normal Cardiovascular: regular rate and rhythym, No edema Respiratory: no respiratory distress, no rales or rhonchi, clear to auscultation Gastrointestinal: normoactive bowel sounds, No tenderness Skin: warm Neurologic: AAOx3 Psychiatric: interacting appropriately, No not anxious, No not encephalopathic, No agitated Lymph, Heme, Immunologic: petechiae ICD10 Worksheet Patient Problems: Problems Problem Status Onset Diaphoresis Acute Hypothyroid Acute Vomiting Acute
--- NOTE | 2018-06-15 13:31 | ASMTCASEMG ---
Living Arrangements What is your living Answers: Alone arrangement? Who do you live with? Type Of Residence What kind of residence do Answers: House you live in? Discharge Plan Comments Coordination Status Comments Notes: Patient is an 82yo male who has an extensive medical hx including bladder cancer, ulerative colitis, bordeline diabetes, hypertension, hyperlipidemia, second degree heart block, seizure, chronic kidney disease and allergic rhinitis. Patient was admitted for bowel perforation, hypotension and possible surgery. OT/PT ordered. D/C plan TBD. CM will follow. Date Signed: 06/15/2018 01:30 PM Electronically Signed By:Jenifer Vance LCSW
--- NOTE | 2018-06-15 15:49 | PDINTPN ---
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 Abdo CT showed edema and free air with blurred margins, and the next morning the patient complained of acute rise in pain and his ileostomy bag had become dislodged and he was found with significant stool scattered around his apartment. He also reported several falls related to this. In the ED he was hypotensive but responded well to IVF. He was evaluated by Dr. Sommer who suggested conservative management. * peritonitis with probable perforation- this may have been a chronic issue that has walled off- a barium enema showed no evidence of leak and his abdominal is substantially better today. His initial lactate of 9.4 has come down to 1.3-1.6 and he never needed pressors. Hct has been stable and he remains afebrile. Antibiotics include CTX/flagyl, blood cultures remain negative to date. Defer to surgery about feeding but would favor NPO for today. Target should be SBP>90. * ADENIKE- likely related hypovolemia and hypotension. Adequate UOP today and decrease creatinine from 2.5 to 2.0. follow * DM- relatively stable Subjective: feels better today with reduced abdominal pain. No pressors Objective: Vital Signs Temp Pulse Resp BP Pulse Ox 37.5 C 52 L 15 96/42 L 100 06/15/18 15:00 06/15/18 15:00 06/15/18 15:00 06/15/18 15:00 06/15/18 15:00 Laboratory Results 06/15/18 04:20 06/15/18 04:20 06/14/18 06/15/18 06/16/18 05:59 05:59 05:59 Intake Total 6969 Output Total 2110 1685 Balance 4859 -1685 PT 16.7 SEC (12.0-15.0) H 06/14/18 13:40 INR 1.33 (0.83-1.16) H 06/14/18 13:40 Physical Exam - Physical Exam General Appearance: alert, no apparent distress, thin EENT: PERRL/EOMI, No scleral icterus (R), No scleral icterus (L) Neck: full range of motion, supple Respiratory: lungs clear, normal breath sounds, No respiratory distress, No accessory muscle use Cardiac/Chest: regular rate, rhythm, No edema Abdomen: non-tender, soft, other (ileostomy), No distended, No guarding, No rebound Skin: normal color, warm/dry, No cyanosis Lymphatic: no adenopathy Extremities: No pedal edema Neuro/Psych: alert, normal mood/affect, oriented x 3, 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
[2018-06-15] MEDS ORDERED: MAGNESIUM SULF 1 GM/DEXTROSE 100 ML IV ONE (20:30)
[2018-06-15] MEDS: CEPACOL LOZENGE PO PRN (20:45)
[2018-06-15] MEDS: POTASSIUM Cl (KCl) 50 ML IV SCH ×2 (20:47→22:12)
--- NOTE | 2018-06-15 20:59 | CPEKG ---
Test Reason : OPEN Blood Pressure : / mmHG Vent. Rate : 069 BPM Atrial Rate : 094 BPM P-R Int : 247 ms QRS Dur : 090 ms QT Int : 499 ms P-R-T Axes : 059 -27 041 degrees QTc Int : 535 ms Normal sinus rhythm Second degree AV block, Mobitz II Supraventricular bigeminy Anterior infarct, old Confirmed by Prabhjot Flores ([id number] on 06/15/2018 8:58:46 PM Referred By: Confirmed By:Prabhjot Flores
[2018-06-16] MEDS: CEPACOL LOZENGE PO PRN ×3 (00:09→10:45)
[2018-06-16] MEDS: POTASSIUM Cl (KCl) 50 ML IV SCH ×4 (04:28→23:45)
[2018-06-16] MEDS: NOREPINEPHRINE BITARTRATE 4 MG in NS 500 ML IV SCH (05:27)
--- NOTE | 2018-06-16 05:41 | GCON ---
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 CONSULTING PHYSICIAN: Ramses Coyle MD HISTORY OF PRESENT ILLNESS: The patient is a pleasant 82-year-old gentleman with a known history of hypertension, hyperlipidemia, type 2 diabetes, as well as a history of ulcerative colitis, who underw ent a colectomy in the past with ileostomy. He has been experiencing increasing abdominal pain over the last 1 month. He states that on Tuesday night, June 13, 2018, he fell on the floor at home an d was unable to get up. He spent Tuesday night on the floor and ultimately was able to make contact with his son on Tuesday. His son states he found him initially unresponsive in a recliner chair an d ultimately was able to speak. He was brought by EMS to [facility] for further eval uation, concern for possible bowel perforation with peritonitis and abdominal sepsis. He has been tr eated with aggressive IV hydration, ceftriaxone, Flagyl. Course was also complicated by acute renal insufficiency with creatinine of 2.5 with generally baseline around 1.1. We were asked to see the patient today secondary to telemetry readings demonstrating bradycardia and Mobitz 1 Wenckebach second-degree AV block. The patient has no complaints of palpitations, dizziness, lightheadedness, near syncope, or syncope. I reviewed all of his telemetry tracings as well as his ECG. 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 He has a known history of Wenckebach dati ng back until January of 2017. A Holter monitor at that point demonstrated sinus rhythm with frequent P ACs and frequent type 1 Wenckebach second-degree AV block that was asymptomatic. These events were n oted to occur both at night and during the day. He had brief runs of irregular rhythm and was docume nted unable to rule out paroxysms of atrial fibrillation. He is not on anticoagulation. Most recent echocardiogram was from January of 2017, demonstrating normal left ventricular function, mil [id number] mitral regurgitation and mild tricuspid regurgitation. Most recent stress test was in December 2014 demonstrating no evidence of ischemia. Currently, at the time of my exam, he is resting comfortably without complaint. PAST MEDICAL HISTORY: Includes hypertension, hyperlipidemia, type 2 diabetes, history of ulcerative colitis status post ileostomy, history of GERD. PAST SURGICAL HISTORY: Includes bladder tumor resection, colectomy, ileostomy, and shoulder surgery. MEDICATIONS ON ADMISSION: Include simvastatin 20 mg daily, Singulair 10 mg daily, lisinopril 5 mg da radha, levothyroxine 100 mcg daily and metformin 500 mg p.o. b.i.d. ALLERGIES: To medication include Zosyn and sulfa. FAMILY HISTORY: He lives alone. His family lives close by. He is a former tobacco user. PHYSICAL EXAMINATION: VITAL SIGNS: Blood pressure 102/41, heart rate 98 in sinus rhythm, respirator y rate of 28, oxygen saturation 97% on 4 L nasal cannula. GENERAL: He is awake, alert, oriented, an d appropriate. No apparent distress. He sitting up in bed eating jello. CARDIAC: S1. Regular rat e and rhythm. No murmurs, rubs, or gallops on exam. LUNGS: Clear to auscultation anteriorly. CURRENT MEDICATIONS: Include vasopressin drip. He is currently also on a Levophed drip. Antibiotic s include ceftriaxone and Flagyl intravenously. LAB WORK: White blood cell count currently 8.94, hemoglobin 11.8, hematocrit 34.4, platelet count 23 1. Sodium 139, potassium 3.1, chloride 110, bicarb 17, BUN 48, creatinine 2. AST 101, ALT 600. Blo od cultures are pending. IMPRESSION: 1. Sepsis. 2. Hypotension requiring pressor support. 3. Acute renal insufficiency, peak creatinine of 2.5, trending down to 2.0 today. 4. History of ulcerative colitis status post ileostomy. 5. Mobitz 1 Wenckebach second-degree atrioventricular block. The patient has a known history of Mobitz 1 second-degree AV block on 2 previous Holter monitors at [facility]. Most recently from January of 2017. Echocardiogram at that time demonstrated normal left ventricular function with [id number] mitral regurgitation and mild tricuspid regurgitation. P revious nuclear stress test from December of 2014 with no evidence of ischemia. Overall, I think that the patient has made a significant and relatively rapid recovery so far given the acuity of his medical condition 2 days ago. Telemetry demonstrates clear Mobitz 1 with progression of WI interval prior to dropped beats and short WI interval post dropped non conducted beat. No indication for pacemaker. PLAN: No indication for pacemaker. We will continue to follow along with his care, titrate pressors as tolerated. /[id number]/MODL
[2018-06-16 06:55] LABS: PLATELET COUNT 188 10^3/uL (150-400)
[2018-06-16] MEDS: VASOPRESSIN 25 UNIT in NS 250 ML IV SCH ×2 (10:46→22:49)
[2018-06-16] MEDS: FAMOTIDINE 20 MG/NACL 50 ML IV SCH (11:07)
--- NOTE | 2018-06-16 11:55 | HOSPPROG ---
Hospitalist Progress Note Assessment/Plan: Septic Shock - Likely source- Peritonitis/intra-abdominal from likely bowel perforation seen on CT - LA 9.4 on admission - S/p 30 cc/kg IVF (1.9 L) in ED, plus 1 additional L on admission - s/p PICC placement - cont Ceftriaxone/Flagyl - Blood cultures x2 collected on admission remain negative -Still on NE and Vasopressin. Wean as able to. BP remains soft -He is a Mosque, does not want albumin or transfusion Bowel Perforation/Peritonitis, appears to have self resolved. No surgical intervention at this time. -Surgery following -abx per above -CLD -Barium study on 06/15 shows no perforation Bradycardia, Mobitz Type 1 block -no indication for PM -Cardiology is following ADENIKE on CKD, resolving - Cr 2.5 on admission, baseline 1.1-1.3. Today is 1.3 - In setting of septic shock, hypovolemic - Continue to monitor BMP, I/O, avoid nephrotoxic agents UC s/p Ileostomy - Not currently on medical tx per chart review - Management of bowel perforation as above Hypothyroidism - restart home Levothyroxine HTN - Holding BP medications (Lisinopril) given sepsis as above T2DM - Holding home Metformin - ISS HLD - Continue home Simvastatin when able to tolerate diet Hypokalemia: replace per protocol Anemia Code: FULL total critical care time in this pt with improving sepsis and peritonitis is 31 mins. D/W ICU team during rounds. Subjective: no abd pain. no sob. tolerating a CLD Objective: Vital Signs Temp Pulse Resp BP Pulse Ox 36.9 C 54 L 16 113/47 L 90 L 06/16/18 11:00 06/16/18 11:00 06/16/18 11:00 06/16/18 11:00 06/16/18 11:00 Laboratory Results 06/16/18 06:36 06/16/18 06:36 06/15/18 06/16/18 06/17/18 05:59 05:59 05:59 Intake Total 9937 4831 1804 Output Total 2160 3755 265 Balance 4859 -344 1539 PT 16.7 SEC (12.0-15.0) H 06/14/18 13:40 INR 1.33 (0.83-1.16) H 06/14/18 13:40 - Physical Exam Constitutional: no apparent distress Eyes: PERRL Ears, Nose, Mouth, Throat: moist mucous membranes, hearing normal, ears appear normal Cardiovascular: regular rate and rhythym, No edema Respiratory: no respiratory distress, no rales or rhonchi, clear to auscultation Gastrointestinal: No guarding, No distension Skin: warm Neurologic: AAOx3 Psychiatric: interacting appropriately, not anxious, not encephalopathic Lymph, Heme, Immunologic: No petechiae ICD10 Worksheet Patient Problems: Problems Problem Status Onset Diaphoresis Acute Hypothyroid Acute Vomiting Acute
--- NOTE | 2018-06-16 12:02 | PDCARPN ---
Cardiology Progress Note Assessment/Plan: Assessment: 1. Mobitz 1 (Wenckebach) second-degree AV block 2. Peritonitis 3. Sepsis 4. Hypotension with continued pressor support Plan: -no indication for pacemaker at this time, known history of Mobitz 1 (Wenckebach ) second-degree AV block. -pressor titration per Critical Care -Will continue to follow 06/16/18 12:00 Subjective: Mr. Woody is feeling better this AM. Tolerating increased PO. Telemetry demonstrates NSR with Mobitz I (Wenkebach). Known hx of Wenkejason on holter monitor x 2 at [facility]. He denies dizziness, lightheadedness, near syncope or syncope. Reviewed/Discussed With: multidisciplinary team Objective: Vital Signs (8 Hrs) Temp Pulse Resp BP Pulse Ox 06/16/18 11:00 36.9 C 54 L 16 113/47 L 90 L 06/16/18 10:00 36.8 C 82 20 81/44 L 91 L 06/16/18 09:00 36.9 C 72 22 H 131/65 H 100 06/16/18 08:00 36.9 C 85 18 106/47 L 96 06/16/18 07:00 36.8 C 51 L 14 110/38 L 96 06/16/18 05:30 36.7 C 48 L 13 95/45 L 98 06/16/18 05:00 36.7 C 42 L 12 95/45 L 100 06/16/18 04:00 36.9 C 44 L 11 L 116/45 L 99 Intake/Output (24 Hrs) 06/15/18 06/16/18 06/17/18 05:59 05:59 05:59 Intake Total 6969 3391 1804 Output Total 2110 3735 265 Balance 1299 -415 4849 Intake: Oral (ml) 860 IV Infused (ml) 6969 2531 1804 Albumin 5% 1,000 ml @ As 1000 Directed IV ONCE ONE Rx#: [id number] Norepinephrine Bitartrate 681 648 441 4 mg In Ns 500 ml @ Per Protocol IV CONT NOE Rx#: [id number] Ns 1,000 ml @ 100 mls/hr 1788 1712 1100 IV CONT NOE Rx#: [id number] Ns 1,000 ml @ 3000 mls/hr 1000 IV ONCE ONE Rx#: [id number] Vasopressin 25 unit In Ns 171 263 250 ml @ 24 mls/hr IV CONT NOE Rx#:[id number] Output: Urine (ml) 910 2385 265 Catheter 910 1335 265 Ileostomy 1050 Liquid Stool (ml) 1200 1350 Ileostomy 1200 1350 Other: Weight 65.4 kg Output Comment Ileostomy lots of flatus Result Diagrams: 06/16/18 06:36 06/16/18 06:36 - Physical Exam Constitutional: WDWN Neurologic: AAOx3, CN II-XII grossly intact Psychiatric: cooperative, interactive, following commands ICD10 Worksheet Patient Problems: Problems Problem Status Onset Diaphoresis Acute Hypothyroid Acute Vomiting Acute
[2018-06-16] MEDS ORDERED: POTASSIUM Cl (KCl) 50 ML IV ONE (14:37)
--- NOTE | 2018-06-16 15:07 | PDINTPN ---
Manager Clinical Services Progress Note Assessment/Plan: 82 M with pmh of ulcerative colitis s/p colectomy and ileostomy years ago presented to outpatient clinic complaining of 1 month of abdominal pain. Abdo CT showed edema and free air with blurred margins, and the next morning the patient complained of acute rise in pain and his ileostomy bag had become dislodged and he was found with significant stool scattered around his apartment. He also reported several falls related to this. In the ED he was hypotensive but responded well to IVF. He was evaluated by Dr. Sommer who suggested conservative management. * peritonitis with probable perforation- this may have been a chronic issue that has walled off- a barium enema showed no evidence of leak and his abdominal remains benign (very tender on admission). His initial lactate of 9.4 has come down to 1.3-1.6 but he still requires pressors at low dose and NICOM negative for fluid responsiveness. Hct has been stable and he remains afebrile. Antibiotics include CTX/flagyl, blood cultures remain negative to date. Target should be SBP>90. Started clears 06/16 * Bradycardia- consistent with Mobitz type I and pacer indication as per cards. This has been a chromnic problem and he remains asymptomatic from this. * ADENIKE- likely related hypovolemia and hypotension. Adequate UOP and decrease creatinine from 2.5 to 1.0. follow * DM- relatively stable * Knee pain- he had several falls prior to admission but was not complaining of this 06/15. Working with PT for now and will continue to re-ec=valuate. No indication for XR at this time. * SH- p[atient is Jehovahs witness and declines all blood products including albumin. 06/16/18 15:04 06/16/18 15:07 Subjective: continues to improve. no abdominal pain Objective: Vital Signs Temp Pulse Resp BP Pulse Ox 37.1 C 65 15 117/69 99 06/16/18 14:00 06/16/18 14:00 06/16/18 14:00 06/16/18 14:00 06/16/18 14:00 Laboratory Results 06/16/18 06:36 06/16/18 12:10 06/15/18 06/16/18 06/17/18 05:59 05:59 05:59 Intake Total 2241 1681 1804 Output Total 2110 3735 265 Balance 8359 -708 1539 PT 16.7 SEC (12.0-15.0) H 06/14/18 13:40 INR 1.33 (0.83-1.16) H 06/14/18 13:40 Physical Exam - Physical Exam General Appearance: alert, no apparent distress, thin EENT: PERRL/EOMI, No scleral icterus (R), No scleral icterus (L) Neck: full range of motion, supple Respiratory: lungs clear, normal breath sounds, decreased breath sounds, No respiratory distress, No accessory muscle use Cardiac/Chest: regular rate, rhythm, edema Abdomen: normal bowel sounds, non-tender, soft, No organomegaly, No distended, No guarding, No rebound Skin: normal color, warm/dry, No cyanosis Lymphatic: no adenopathy Extremities: No pedal edema Neuro/Psych: alert, normal mood/affect, oriented x 3 ICD10 Worksheet Patient Problems: Problems Problem Status Onset Diaphoresis Acute Hypothyroid Acute Vomiting Acute
--- NOTE | 2018-06-16 15:22 | ASMTCMCOM ---
CM Note CM Note Notes: Met with patient to discuss therapy recommendations for SNF; patient agrees that he will be to weak to return home upon d/c. He did not have a preference for a facility, so I sent preliminary referrals to [facility], [facility], and [facility]. I also called and left a message for his son Chao. Case Management will follow. Date Signed: 06/16/2018 03:10 PM Electronically Signed By:Nikki Potts RN
[2018-06-16] MEDS: ACETAMINOPHEN 650 MG/20.3 ML UDCUP PO PRN (21:05)
[2018-06-17] MEDS: CEPACOL LOZENGE PO PRN (02:47)
[2018-06-17 05:30] LABS: PLATELET COUNT 151 10^3/uL (150-400)
[2018-06-17] MEDS: LEVOTHYROXINE 75 MCG TAB PO SCH (05:40)
--- NOTE | 2018-06-17 07:09 | CPEKG ---
Test Reason : OPEN Blood Pressure : / mmHG Vent. Rate : 043 BPM Atrial Rate : 000 BPM P-R Int : 259 ms QRS Dur : 096 ms QT Int : 555 ms P-R-T Axes : 053 -16 022 degrees QTc Int : 470 ms Sinus rhythm Supraventricular bigeminy First degree AV block Low voltage, extremity and precordial leads Confirmed by Prabhjot Flores ([id number]) on 06/17/2018 7:09:12 AM Referred By: Confirmed By:Prabhjot Flores
[2018-06-17] MEDS: FAMOTIDINE 20 MG/NACL 50 ML IV SCH (08:05)
--- NOTE | 2018-06-17 08:50 | PDCARPN ---
Cardiology Progress Note Assessment/Plan: Assessment: 1. Mobitz 1 (Wenckebach) second-degree AV block, intermittent episodes of 2-1 av block. Asymptomatic. 2. Peritonitis 3. Sepsis 4. Hypotension with continued pressor sup Plan: -no indication for pacemaker at this time, known history of Mobitz 1 (Wenckebach ) second-degree AV block and brief periods of asymptomatic 2-1 block. Noted on Holter monitor in 2017 -patient is stable for transfer to [facility]. Patient is to remain on telemetry. -Will continue to follow 06/17/18 08:50 Subjective: Mr. Woody continues to make gradual steady progress. He is now off of all pressor support maintaining adequate blood pressure. Telemetry demonstrates continued intermittent Mobitz 1 second-degree AV block (Wenckebach). I do note intermittent, brief episodes of 2-1 av block. Previous history of this noted on Holter monitor in 2017. He is asymptomatic. Reviewed/Discussed With: multidisciplinary team Objective: Vital Signs (8 Hrs) Temp Pulse Resp BP Pulse Ox 06/17/18 07:00 36.6 C 81 18 100/60 97 06/17/18 06:00 37 C 67 13 98/49 L 97 06/17/18 05:00 37 C 69 18 115/63 97 06/17/18 04:00 62 18 108/47 L 92 06/17/18 03:00 75 22 H 89/40 L 94 06/17/18 02:00 47 L 11 L 84/39 L 92 06/17/18 00:56 76 14 105/63 97 Intake/Output (24 Hrs) 06/16/18 06/17/18 06/18/18 05:59 05:59 05:59 Intake Total 3391 5222 Output Total 3735 2275 Balance -344 2947 Intake: Oral (ml) 860 1700 IV Intake (ml) 500 IV Infused (ml) 2531 3022 Norepinephrine Bitartrate 648 518 4 mg In Ns 500 ml @ Per Protocol IV CONT NOE Rx#: [id number] Ns 1,000 ml @ 100 mls/hr 1712 1809 IV CONT NOE Rx#: [id number] Vasopressin 25 unit In Ns 171 695 250 ml @ 24 mls/hr IV CONT NOE Rx#:[id number] Output: Urine (ml) 2385 1415 Catheter 1335 1415 Ileostomy 1050 Liquid Stool (ml) 1350 860 Ileostomy 1350 860 Other: Output Comment Ileostomy lots of flatus Number of Stools Catheter 0 Result Diagrams: 06/17/18 05:15 06/17/18 05:15 - Physical Exam Neurologic: AAOx3, CN II-XII grossly intact Psychiatric: cooperative, interactive ICD10 Worksheet Patient Problems: Problems Problem Status Onset Diaphoresis Acute Hypothyroid Acute Vomiting Acute
--- NOTE | 2018-06-17 12:45 | HOSPPROG ---
Hospitalist Progress Note Assessment/Plan: Septic Shock - Likely source- Peritonitis/intra-abdominal from likely bowel perforation seen on CT - LA 9.4 on admission - S/p 30 cc/kg IVF (1.9 L) in ED, plus 1 additional L on admission - s/p PICC placement - cont Ceftriaxone/Flagyl - Blood cultures x2 collected on admission remain negative -Still on NE and Vasopressin. Wean as able to. BP remains soft -He is a Judaism, does not want albumin or transfusion Bowel Perforation/Peritonitis, appears to have self resolved (walled off). No surgical intervention at this time. -Surgery following -abx per above. Would treat for 10 days -CLD per Surgery -Barium study on 06/15 shows no perforation Bradycardia, Mobitz Type 1 block -no indication for PM -Cardiology is following ADENIKE on CKD, resolved - Cr 2.5 on admission, baseline 1.1-1.3. - In setting of septic shock, hypovolemic - Continue to monitor BMP, I/O, avoid nephrotoxic agents UC s/p Ileostomy - Not currently on medical tx per chart review - Management of bowel perforation as above Hypothyroidism - restart home Levothyroxine HTN - Holding BP medications (Lisinopril) given sepsis as above T2DM - Holding home Metformin - ISS HLD - Continue home Simvastatin when able to tolerate diet Hypokalemia: replace per protocol Anemia Code: FULL Plan: Ok to transfer to PCU cont dual abx monitor BP closely Diet per surgery Subjective: no cp or sob. no n/v. Has a sore throat Objective: Vital Signs Temp Pulse Resp BP Pulse Ox 36.8 C 86 19 109/62 94 06/17/18 11:43 06/17/18 11:43 06/17/18 11:43 06/17/18 11:43 06/17/18 11:43 Laboratory Results 06/17/18 05:15 06/17/18 05:15 06/16/18 06/17/18 06/18/18 05:59 05:59 05:59 Intake Total 3391 5222 Output Total 2545 4495 Balance -344 2947 PT 16.7 SEC (12.0-15.0) H 06/14/18 13:40 INR 1.33 (0.83-1.16) H 06/14/18 13:40 - Physical Exam Constitutional: chronically ill appearing Eyes: PERRL Ears, Nose, Mouth, Throat: moist mucous membranes, hearing normal Cardiovascular: regular rate and rhythym Respiratory: no respiratory distress, no rales or rhonchi, clear to auscultation Gastrointestinal: normoactive bowel sounds, No guarding, No distension Skin: warm Neurologic: AAOx3 Psychiatric: interacting appropriately, not anxious, not encephalopathic Lymph, Heme, Immunologic: No petechiae ICD10 Worksheet Patient Problems: Problems Problem Status Onset Diaphoresis Acute Hypothyroid Acute Vomiting Acute
[2018-06-17] MEDS ORDERED: CARBOXYMETHYLCELLULOSE 1% 0.4 ML DROPERETTE EACHEYE PRN (19:58)
[2018-06-17] MEDS: ACETAMINOPHEN 650 MG/20.3 ML UDCUP PO PRN (20:24)
[2018-06-17] MEDS: PHENOL 177 ML THROAT SPRAY PO PRN ×2 (20:25→21:55)
[2018-06-18] MEDS: ACETAMINOPHEN 650 MG/20.3 ML UDCUP PO PRN (01:38)
[2018-06-18] MEDS: PHENOL 177 ML THROAT SPRAY PO PRN (05:50)
[2018-06-18] MEDS: LEVOTHYROXINE 75 MCG TAB PO SCH (05:52)
[2018-06-18] MEDS ORDERED: MAGNESIUM SULF 1 GM/DEXTROSE 100 ML IV ONE (07:21)
[2018-06-18] MEDS ORDERED: POTASSIUM Cl (KCl) 50 ML IV ONE (07:21)
[2018-06-18] MEDS: FAMOTIDINE 20 MG/NACL 50 ML IV SCH (09:04)
--- NOTE | 2018-06-18 09:59 | PDCARPN ---
Cardiology Progress Note Assessment/Plan: Second Degree AV block Type I (Wenckebach) and Intermittent Episodes of 2:1 AV Block: Asymptomatic. He has demonstrated this degree of AV block in the past on outpatient Holter monitoring. His clinical situation has improved and he is off of IV pressor agents. Heart rate currently in the 80s. No evidence for any hemodynamically significant arrhythmias. - Will sign off for now. - The office staff at [facility] has been sent instructions to contact the patient to arrange a followup appointment with Dr. Servin in the next few weeks. 06/18/18 09:51 Subjective: No complaints. Objective: Vital Signs (8 Hrs) Temp Pulse Resp BP Pulse Ox 06/18/18 07:18 78 06/18/18 07:08 36.7 C 82 17 108/69 93 06/18/18 04:00 36.9 C 93 17 109/61 93 Intake/Output (24 Hrs) 06/17/18 06/18/18 06/19/18 05:59 05:59 05:59 Intake Total 5222 1732 480 Output Total 2275 3300 300 Balance 2947 -1568 180 Intake: Oral (ml) 1700 1250 480 IV Intake (ml) 500 482 IV Infused (ml) 3022 Norepinephrine Bitartrate 518 4 mg In Ns 500 ml @ Per Protocol IV CONT NOE Rx#: [id number] Ns 1,000 ml @ 100 mls/hr 1809 IV CONT NOE Rx#: [id number] Vasopressin 25 unit In Ns 695 250 ml @ 24 mls/hr IV CONT NOE Rx#:[id number] Output: Urine (ml) 1415 1100 Catheter 1415 800 Ileostomy 300 Liquid Stool (ml) 860 2200 300 Catheter 250 Ileostomy 860 1950 300 Other: Intake Quantity Yes Sufficient Number of Stools Catheter 0 Result Diagrams: 06/17/18 05:15 06/18/18 05:40 - Physical Exam Constitutional: no apparent distress Eyes: anicteric sclera Ears, Nose, Mouth, Throat: moist mucous membranes Cardiovascular: regular rate and rhythm, no murmurs, no gallops Respiratory: clear to auscultate bilat Gastrointestinal: normoactive bowel sounds, no tenderness, no masses Skin: no edema Neurologic: AAOx3 Psychiatric: not anxious ICD10 Worksheet Patient Problems: Problems Problem Status Onset Diaphoresis Acute Hypothyroid Acute Vomiting Acute
--- NOTE | 2018-06-18 11:21 | HOSPPROG ---
Hospitalist Progress Note Assessment/Plan: Septic Shock, resolved - Likely source- Peritonitis/intra-abdominal from likely bowel perforation seen on CT - LA 9.4 on admission - S/p 30 cc/kg IVF (1.9 L) in ED, plus 1 additional L on admission - s/p PICC placement - cont Ceftriaxone/Flagyl for now - Blood cultures x2 collected on admission remain negative -now off pressors since 06/17 -He is a [employer], does not want albumin or transfusion Bowel Perforation/Peritonitis, appears to have self resolved (walled off). No surgical intervention at this time. -Surgery following -abx per above. Would treat for 10 days -Surgery is advancing diet -Barium study on 06/15 shows no perforation Bradycardia, Mobitz Type 1 block -no indication for PM -Cardiology has signed off. He will need f/u with Cardiology as op ADENIKE on CKD, resolved - Cr 2.5 on admission, baseline 1.1-1.3. - In setting of septic shock, hypovolemic - Continue to monitor BMP, I/O, avoid nephrotoxic agents UC s/p Ileostomy - Not currently on medical tx per chart review - Management of bowel perforation as above Hypothyroidism - restart home Levothyroxine HLD: restart simvastatin HTN - cont to hold Lisinopril given soft BP T2DM - Holding home Metformin - ISS Hypokalemia: replace per protocol Anemia Left arm erythema: does not appear infected. monitoring for now. on abx per above Code: FULL Plan: Likely ok for regular diet today. No active plans for surgery will monitor overnight. if he tolerated a diet and bp cont to be stable, would discharge to SNF. CM is looking into placement. Subjective: tolerating a CLD. no abd pain. no fever. bP stable but soft. good uop Objective: Vital Signs Temp Pulse Resp BP Pulse Ox 36.7 C 78 17 108/69 93 06/18/18 07:08 06/18/18 07:18 06/18/18 07:08 06/18/18 07:08 06/18/18 07:08 Laboratory Results 06/17/18 05:15 06/18/18 05:40 06/17/18 06/18/18 06/19/18 05:59 05:59 05:59 Intake Total 5222 1732 480 Output Total 2275 3300 750 Balance 2947 -1568 -270 PT 16.7 SEC (12.0-15.0) H 06/14/18 13:40 INR 1.33 (0.83-1.16) H 06/14/18 13:40 - Physical Exam Constitutional: no apparent distress Eyes: PERRL Ears, Nose, Mouth, Throat: moist mucous membranes, hearing normal Cardiovascular: regular rate and rhythym Respiratory: no respiratory distress, no rales or rhonchi, clear to auscultation Gastrointestinal: normoactive bowel sounds, soft, non-tender abdomen Skin: warm Musculoskeletal: generalized weakness Neurologic: AAOx3 Psychiatric: interacting appropriately, not anxious, not encephalopathic Lymph, Heme, Immunologic: No petechiae ICD10 Worksheet Patient Problems: Problems Problem Status Onset Diaphoresis Acute Hypothyroid Acute Vomiting Acute
--- NOTE | 2018-06-18 11:25 | SOAPPROG ---
SOAP Progress Note Assessment/Plan: Assessment: 82 yo with history of ileostomy due to ulcerative colitis and bladder cancer who presented with abdominal pain and was found to have free air. Barium did not show evidence of leak He is having good gas and stool output. His abdominal pain has resolved. Will advance diet Subjective: Feeling better today. Objective lying in bed Plan: 06/18/18 11:23 Objective: Vital Signs Temp Pulse Resp BP Pulse Ox 36.7 C 78 17 108/69 93 06/18/18 07:08 06/18/18 07:18 06/18/18 07:08 06/18/18 07:08 06/18/18 07:08 Laboratory Results 06/17/18 05:15 06/18/18 05:40 06/17/18 06/18/18 06/19/18 05:59 05:59 05:59 Intake Total 5222 1732 480 Output Total 2275 3300 750 Balance 2947 -1568 -270 PT 16.7 SEC (12.0-15.0) H 06/14/18 13:40 INR 1.33 (0.83-1.16) H 06/14/18 13:40 Physical Exam - Physical Exam General Appearance: WD/WN, alert, no apparent distress, thin EENT: PERRL/EOMI, normal ENT inspection, No scleral icterus (R), No scleral icterus (L), No hearing deficit Respiratory: lungs clear, normal breath sounds Cardiac/Chest: regular rate, rhythm Abdomen: normal bowel sounds, non-tender, soft, other (gas and liquid stool in ostomy) ICD10 Worksheet Patient Problems: Problems Problem Status Onset Diaphoresis Acute Hypothyroid Acute Vomiting Acute
[2018-06-18] MEDS: CEPACOL LOZENGE PO PRN (20:34)
[2018-06-19] MEDS: LEVOTHYROXINE 75 MCG TAB PO SCH (05:57)
[2018-06-19] MEDS: FAMOTIDINE 20 MG/NACL 50 ML IV SCH (08:36)
[2018-06-19 10:23] LABS: PLATELET COUNT 130 10^3/uL (150-400)
[2018-06-19] MEDS: PHENOL 177 ML THROAT SPRAY PO PRN (11:34)
[2018-06-19] MEDS: CEPACOL LOZENGE PO PRN ×3 (11:40→22:06)
--- NOTE | 2018-06-19 13:08 | PDIAF ---
- Diagnosis Code Status: Full Code - Medication Management Additional Medication Instructions: Take cefdinir 300mg BID (start AM of 06/20) and metronidazole 500mg TID (start evening of 06/19) through 07/03. Discharge Medications: electronically signed and located in the Home Medication List. - Orders Diet Recommendation: no restrictions on diet [place]: Not applicable Additional Instructions: Here are your discharge instructions: 1. We have started you on the following medications: - Cefdinir. Antibiotic that you need through 06/23. - Metronidazole. Antibiotic that need through 06/23. - Pantoprazole. Take daily to help with swallowing pain. - Nystatin. Take twice daily to help with potential thrush. - We also have throat spray to help ease your sore throat. - Iron tablets. Take once daily to improve your iron stores. 2. I have discontinued your lisinopril for the time being. 3. Please follow up with your primary care provider after finishing up rehab. - Follow Up Care Current Providers and Referrals: Patient,NotPresent [Unknown] - As per Instructions
--- NOTE | 2018-06-19 13:13 | PDDCSUM ---
Discharge Summary Discharge Summary: Date of Admission: 06/14/2018 Date of Discharge: 06/19/2018 Consultants: Procedures/Studies: Disposition: SNF for ongoing PT/OT needs Discharge Diagnoses: Brief Hospital Course: Septic Shock, resolved - Likely source- Peritonitis/intra-abdominal from likely bowel perforation seen on CT - LA 9.4 on admission - S/p 30 cc/kg IVF (1.9 L) in ED, plus 1 additional L on admission - s/p PICC placement - cont Ceftriaxone/Flagyl for now - Blood cultures x2 collected on admission remain negative -now off pressors since 06/17 -He is a Jain, does not want albumin or transfusion Bowel Perforation/Peritonitis, appears to have self resolved (walled off). No surgical intervention at this time. -Surgery following -abx per above. Would treat for 10 days -Surgery is advancing diet -Barium study on 06/15 shows no perforation Bradycardia, Mobitz Type 1 block -no indication for PM -Cardiology has signed off. He will need f/u with Cardiology as op ADENIKE on CKD, resolved - Cr 2.5 on admission, baseline 1.1-1.3. - In setting of septic shock, hypovolemic - Continue to monitor BMP, I/O, avoid nephrotoxic agents UC s/p Ileostomy - Not currently on medical tx per chart review - Management of bowel perforation as above Hypothyroidism - restart home Levothyroxine HLD: restart simvastatin HTN - cont to hold Lisinopril given soft BP T2DM - Holding home Metformin - ISS Hypokalemia: replace per protocol Anemia Left arm erythema: does not appear infected. monitoring for now. on abx per above Code: FULL Medications: Follow Up Plan: Physical Exam:
--- NOTE | 2018-06-19 17:14 | HOSPPROG ---
Hospitalist Progress Note Assessment/Plan: Septic Shock, resolved: Abdominal source. - Continue ceftriaxone/flagyl for 10 day course, cultures remain negative Bowel perforation/peritonitis: Appears to have self resolved (walled off). - Surgery following, intervention planned. - Barium study 06/15 show no perforation Bradycardia, Mobitz Type 1 block -no indication for PM, cardiology signed off, needs op f/u ADENIKE on CKD, resolved - Cr 2.5 on admission, baseline 1.1-1.3. UC s/p Ileostomy - not on medical therapy Hypothyroidism - restarted home Levothyroxine HLD: - restart simvastatin HTN - cont to hold Lisinopril given soft BP T2DM - Holding home Metformin, continue SSI Hypokalemia: replace per protocol Anemia Code: FULL Dispo: Remain inpatient for IV antibiotics. Plan to discharge to SNF. Subjective: Feeling well. Still with dysphagia for last few weeks. No abd pain or diarrhea. No fevers. Not eating much. Objective: Vital Signs Temp Pulse Resp BP Pulse Ox 36.3 C 111 H 12 104/72 96 06/19/18 11:21 06/19/18 11:21 06/19/18 11:21 06/19/18 11:21 06/19/18 11:21 Laboratory Results 06/19/18 10:15 06/18/18 05:40 06/18/18 06/19/18 06/20/18 05:59 05:59 05:59 Intake Total 1732 1570 Output Total 3300 3630 825 Balance -1568 -2060 -825 PT 16.7 SEC (12.0-15.0) H 06/14/18 13:40 INR 1.33 (0.83-1.16) H 06/14/18 13:40 ICD10 Worksheet Patient Problems: Problems Problem Status Onset Diaphoresis Acute Hypothyroid Acute Vomiting Acute
[2018-06-19] MEDS: PANTOPRAZOLE SODIUM 40 MG VIAL IVP SCH (18:29)
--- NOTE | 2018-06-19 19:13 | PDGENHP ---
History & Physical Chief Complaint: ABDOMINAL PAIN AND POSSIBLE FREE AIR History of Present Illness: 82-YEAR-OLD MALE WITH ABDOMINAL PAIN AND CT SCAN SUGGESTING POSSIBLE PNEUMATOSIS OR SMALL AMOUNT OF FREE AIR. HE IS STATUS POST TOTAL COLECTOMY 20 YEARS AGO WITH A ILEOSTOMY. PRESENT ILLNESS IS COMPLICATED BY THE FACT THAT HE HAS HAD ONGOING PAIN FOR SEVERAL MONTHS AND A 40-50 LB WEIGHT LOSS. EVALUATION IS BEEN NON DIAGNOSTIC OVER THAT PERIOD OF TIME INCLUDING AN EGD. HE CURRENTLY HAS BEEN HAVING PROFUSE DIARRHEA THROUGH HIS ILEOSTOMY AND SOME CRAMPY ABDOMINAL PAINS BUT NO EMESIS AND NO FEVER. HIS LACTATE LEVEL IS ELEVATED BUT IS COMING DOWN NICELY WITH RESUSCITATION IS HIS WHITE BLOOD COUNT Pertinent Past, Social, Family History: PMH: TOTAL COLECTOMY FOR ULCERATIVE COLITIS WITH ILEOSTOMY, COPD. SOCIAL HISTORY: MULTIPLE PACK YEARS OF SMOKING HISTORY. REVIEW OF SYSTEMS: A -10 POINT REVIEW EXCEPT RELATED TO THE HPI. ALLERGIES: SULFA, PIPERACILLIN, TAZOBACTAM. MEDS: LISTED IN THE CHART. FAMILY HISTORY NONCONTRIBUTORY Relevant Physical Exam: GENERAL: 82-YEAR-OLD MALE WHO IS IN SOME DISCOMFORT APPEARS WEAK AND MALNOURISHED. HEENT: NONICTERIC, NO ADENOPATHY, PERRLA, SUNKEN CHEEKBONE AND SALLOW APPEARANCE. CHEST CLEAR. COR REGULAR RHYTHM WITH SOME MILD HYPOTENSION. ABDOMEN: SOFT, SCAPHOID, POSITIVE BOWEL SOUNDS, VIABLE ILEOSTOMY IN THE RIGHT LOWER QUADRANT, SOME TENDERNESS AROUND THE ILEOSTOMY BUT NO OTHER HERNIAS. GENITALIA NORMAL. EXTREMITIES FULL RANGE OF MOTION ABSENT PEDAL PULSES. PSYCH EXAM ALERT, ORIENTED, COOPERATIVE. NEURO EXAM: PHYSIOLOGIC AND SYMMETRIC Cardiorespiratory Assessment: IMPRESSION: ABDOMINAL PAIN OF UNCERTAIN ETIOLOGY. I DO NOT AGREE THE FREE AIR IS TRULY FREE AND THERE IS NO EVIDENCE OF A BOWEL OBSTRUCTION ON HIS CT SCAN. LACTIC ACID ELEVATION IS CERTAINLY DISCONCERTING BUT HE HAS BEEN HYPOTENSIVE FOR OVER [address] SCAN WAS DONE 24 HR PRIOR TO ADMISSION WITH NO MAJOR SYMPTOMS AND THE SYMPTOMS HE DOES HAVE A BEEN GOING ON FOR COUPLE MONTHS. PLAN: CLOSE OBSERVATION AND CONTINUED RESUSCITATION WITH FLUIDS AND ANTIBIOTICS. IF HIS PAIN PERSISTS HE MAY NEED A LAPAROSCOPY AND/OR LAPAROTOMY TO RULE OUT ISCHEMIC INTESTINE BUT HE PRESENTLY SEEMS TO BE STEADILY IMPROVING. WOULD RECOMMEND A GASTROGRAFIN ENEMA THROUGH THE OSTOMY 2 BETTER DEFINE THE ANATOMY PRIOR TO ANY SURGICAL INTERVENTION
--- NOTE | 2018-06-19 19:22 | SOAPPROG ---
SOAP Progress Note Assessment/Plan: Assessment: CONTINUES TO IMPROVE WITH LESS ABDOMINAL PAIN AND NO DISTENTION AND CONTINUED OSTOMY OUTPUT REMAINS AFEBRILE ALTHOUGH MILDLY HYPERTENSIVE URINE OUTPUT IS GOOD HEENT REMAINS NONICTERIC WITHOUT ADENOPATHY CHEST CLEAR COR REGULAR RHYTHM ABDOMEN SOFT POSITIVE BOWEL SOUNDS, SCAPHOID WITH NO HERNIA IMPRESSION NO DEFINITE FREE AIR OR SIGNS OF PERITONITIS AT THIS TIME HIS BARIUM ENEMA IS NONDIAGNOSTIC FOR ANY PERFORATION OR OBSTRUCTION OR EVIDENCE OF INFLAMMATORY BOWEL DISEASE Plan: CONTINUE CLOSE OBSERVATION/HOLD OFF SURGERY AT THIS TIME 06/19/18 19:18 Objective: Vital Signs Temp Pulse Resp BP Pulse Ox 36.7 C 106 H 20 103/59 L 90 L 06/19/18 16:00 06/19/18 16:00 06/19/18 16:00 06/19/18 16:00 06/19/18 16:00 Laboratory Results 06/19/18 10:15 06/18/18 05:40 06/18/18 06/19/18 06/20/18 05:59 05:59 05:59 Intake Total 1732 1570 Output Total 3300 3630 1275 Balance -1568 -2060 -1275 PT 16.7 SEC (12.0-15.0) H 06/14/18 13:40 INR 1.33 (0.83-1.16) H 06/14/18 13:40 ICD10 Worksheet Patient Problems: Problems Problem Status Onset Diaphoresis Acute Hypothyroid Acute Vomiting Acute
--- NOTE | 2018-06-19 19:26 | SOAPPROG ---
SOAP Progress Note Assessment/Plan: Assessment: CONTINUES TO IMPROVE WITH LESS ABDOMINAL PAIN AND NO DISTENTION AND CONTINUED OSTOMY OUTPUT REMAINS AFEBRILE ALTHOUGH MILDLY HYPERTENSIVE URINE OUTPUT IS GOOD HEENT REMAINS NONICTERIC WITHOUT ADENOPATHY CHEST CLEAR COR REGULAR RHYTHM ABDOMEN SOFT POSITIVE BOWEL SOUNDS, SCAPHOID WITH NO HERNIA IMPRESSION NO DEFINITE FREE AIR OR SIGNS OF PERITONITIS AT THIS TIME HIS BARIUM ENEMA IS NONDIAGNOSTIC FOR ANY PERFORATION OR OBSTRUCTION OR EVIDENCE OF INFLAMMATORY BOWEL DISEASE Plan: CONTINUE CLOSE OBSERVATION/HOLD OFF SURGERY AT THIS TIME 06/19/18 19:18 06/19/18 19:22 CONTINUES TO IMPROVE WITH LESS ABDOMINAL PAIN/SHE HAS BEEN ON PRESSORS FOR MILD HYPERTENSION/URINE OUTPUT IS STILL EXCELLENT ABDOMEN IS SOFT, SCAPHOID, MUCH LESS TENDER WITH POSITIVE BOWEL SOUNDS/OSTOMY IS FUNCTIONING WELL AND IS QUITE PINK AND NORMAL [address] ABDOMEN IS NON DIAGNOSTIC AND SHOWS NO EVIDENCE OF OBSTRUCTION WBC NORMAL, HEMATOCRIT STABLE, LACTIC ACID DRAMATICALLY IMPROVED DOWN TO NORMAL VITAL SIGNS STABLE, AFEBRILE IMPRESSION: CONTINUES TO IMPROVE WITH NO EVIDENCE DENSE OF PERITONITIS OR FREE AIR AND NO NEED AT THIS TIME FOR ABDOMINAL SURGERY PLAN: CONTINUE CLOSE OBSERVATION/START CLEAR LIQUIDS Objective: Vital Signs Temp Pulse Resp BP Pulse Ox 36.7 C 106 H 20 103/59 L 90 L 06/19/18 16:00 06/19/18 16:00 06/19/18 16:00 06/19/18 16:00 06/19/18 16:00 Laboratory Results 06/19/18 10:15 06/18/18 05:40 06/18/18 06/19/18 06/20/18 05:59 05:59 05:59 Intake Total 1732 1570 Output Total 3300 3630 1275 Balance -1568 -2060 -1275 PT 16.7 SEC (12.0-15.0) H 06/14/18 13:40 INR 1.33 (0.83-1.16) H 06/14/18 13:40 ICD10 Worksheet Patient Problems: Problems Problem Status Onset Diaphoresis Acute Hypothyroid Acute Vomiting Acute
--- NOTE | 2018-06-19 19:28 | SOAPPROG ---
FARHAD Progress Note Assessment/Plan: Assessment: CONTINUES TO IMPROVE WITH LESS ABDOMINAL PAIN AND NO DISTENTION AND CONTINUED OSTOMY OUTPUT REMAINS AFEBRILE ALTHOUGH MILDLY HYPERTENSIVE URINE OUTPUT IS GOOD HEENT REMAINS NONICTERIC WITHOUT ADENOPATHY CHEST CLEAR COR REGULAR RHYTHM ABDOMEN SOFT POSITIVE BOWEL SOUNDS, SCAPHOID WITH NO HERNIA IMPRESSION NO DEFINITE FREE AIR OR SIGNS OF PERITONITIS AT THIS TIME HIS BARIUM ENEMA IS NONDIAGNOSTIC FOR ANY PERFORATION OR OBSTRUCTION OR EVIDENCE OF INFLAMMATORY BOWEL DISEASE Plan: CONTINUE CLOSE OBSERVATION/HOLD OFF SURGERY AT THIS TIME 06/19/18 19:18 06/19/18 19:22 CONTINUES TO IMPROVE WITH LESS ABDOMINAL PAIN/SHE HAS BEEN ON PRESSORS FOR MILD HYPERTENSION/URINE OUTPUT IS STILL EXCELLENT ABDOMEN IS SOFT, SCAPHOID, MUCH LESS TENDER WITH POSITIVE BOWEL SOUNDS/OSTOMY IS FUNCTIONING WELL AND IS QUITE PINK AND NORMAL [address] ABDOMEN IS NON DIAGNOSTIC AND SHOWS NO EVIDENCE OF OBSTRUCTION WBC NORMAL, HEMATOCRIT STABLE, LACTIC ACID DRAMATICALLY IMPROVED DOWN TO NORMAL VITAL SIGNS STABLE, AFEBRILE IMPRESSION: CONTINUES TO IMPROVE WITH NO EVIDENCE DENSE OF PERITONITIS OR FREE AIR AND NO NEED AT THIS TIME FOR ABDOMINAL SURGERY PLAN: CONTINUE CLOSE OBSERVATION/START CLEAR LIQUIDS 06/19/18 19:26 HE ALSO IS COMPLAINING OF SOME PAIN IN HIS RIGHT LEG AND FOOT/NO PALPABLE PEDAL PULSES BUT NO EVIDENCE OF DVT OR INJURY FULL RANGE OF MOTION AND SENSATION INTACT AND MOTOR FUNCTION INTACT PLAN: LEG X-RAY AND POSSIBLE ARTERIAL STUDIES Objective: Vital Signs Temp Pulse Resp BP Pulse Ox 36.7 C 106 H 20 103/59 L 90 L 06/19/18 16:00 06/19/18 16:00 06/19/18 16:00 06/19/18 16:00 06/19/18 16:00 Laboratory Results 06/19/18 10:15 06/18/18 05:40 06/18/18 06/19/18 06/20/18 05:59 05:59 05:59 Intake Total 1732 1570 Output Total 3300 5240 1276 Balance -1568 -2060 -1275 PT 16.7 SEC (12.0-15.0) H 06/14/18 13:40 INR 1.33 (0.83-1.16) H 06/14/18 13:40 ICD10 Worksheet Patient Problems: Problems Problem Status Onset Diaphoresis Acute Hypothyroid Acute Vomiting Acute
[2018-06-19] MEDS ORDERED: ATORVASTATIN CALCIUM 10 MG TAB PO SCH (21:00)
[2018-06-19] MEDS: NYSTATIN SUSP 500000 UNIT/5 ML UD LIQ PO SCH (21:38)
--- NOTE | 2018-06-20 04:58 | CPIP ---
The patient was seen for arch studies. He demonstrates good segmental limb pressures and PVR tracing s down to the ankle levels bilaterally with an ankle-brachial index on the left of 1.1. On the right , his ankle-brachial index is not obtainable, but is 0.78 to the great toe. On the right, he has pul satile flow all the way to the toe, although it is blunted at the ankle and metatarsal and toe level on the left. He has good pulsatile waveform all the way down to the toe. IMPRESSION: Adequate vascular flow for healing any leg wounds. No definitive evidence of vascular i nsufficiency to explain his foot or leg pain on the right. /[id number]/MODL
[2018-06-20] MEDS: LEVOTHYROXINE 75 MCG TAB PO SCH (06:06)
[2018-06-20] MEDS: NYSTATIN SUSP 500000 UNIT/5 ML UD LIQ PO SCH ×2 (06:09→11:55)
[2018-06-20] MEDS: PANTOPRAZOLE SODIUM 40 MG VIAL IVP SCH (07:49)
[2018-06-20 11:21] VITALS: BP 89/49
--- NOTE | 2018-06-20 13:52 | PDIAF ---
- Diagnosis Diagnosis: abdominal pain, colitis, sepsis-resolved, Code Status: Full Code - Medication Management Additional Medication Instructions: Take cefdinir 300mg BID (start AM of 06/20) and metronidazole 500mg TID (start evening of 06/19) through 07/03. Discharge Medications: electronically signed and located in the Home Medication List. - Orders Diet Recommendation: no restrictions on diet Diet Texture: Regular Texture Diet [place]: Not applicable Wound Care Instructions: see orders Additional Instructions: Here are your discharge instructions: 1. We have started you on the following medications: - Cefdinir. Antibiotic that you need through 06/23. - Metronidazole. Antibiotic that need through 06/23. - Pantoprazole. Take daily to help with swallowing pain. - Nystatin. Take twice daily to help with potential thrush. - We also have throat spray to help ease your sore throat. - Iron tablets. Take once daily to improve your iron stores. 2. I have discontinued your lisinopril for the time being. 3. Please follow up with your primary care provider after finishing up rehab. 4. FOLLOWUP WITH DR GODWIN IN 2 WEEKS OR SOONER IF SYMPTOMS RECUR [phone] - Follow Up Care Current Providers and Referrals: Patient,NotPresent [Unknown] - As per Instructions
--- NOTE | 2018-06-20 13:56 | GDS ---
DIAGNOSES: 1. Abdominal pain with evidence of possible pneumatosis versus small amount of free air on CT scan w hich spontaneously resolved without surgery. 2. History of ulcerative colitis status post ileostomy. 3. History of bladder cancer. 4. Chronic kidney failure. 5. Diabetes. 6. Dyslipidemia. 7. Hypertension. 8. Chronic obstructive pulmonary disease. 9. Multiple history of tobacco use. 10. Bradycardia, Mobitz type 1. No indication for pacemaker, evaluated by Cardiology. CONSULTATIONS: 1. General Surgery, Dr. Young Sommer. 2. Critical Care, Dr. Ramses Coyle. 3. Cardiology, Dr. Mack Servin. PROCEDURES: 1. PICC line insertion. 2. Abdominal CT scan prior to hospitalization showing inflammatory changes in the right paul-abdomen , bowel loops with extraluminal air. These are similar findings to a previous CT scan dated 2010. 3. Barium enema. No evidence of perforation. No visible stricture or extravasation. 4. Vascular studies. Adequate vascular flow for any healing leg wounds. HOSPITAL COURSE: The patient is an 82-year-old with a history of ulcerative colitis, ileostomy with several months of abdominal pain. He has had a thorough [facility] an [facility] and is also followed by Dr. Young Sommer. He was admitted after a CT scan revealed possible pneumatosis versus free air. He came in with abdominal pain and hypotension and was admitted to the ntensive care unit for septic shock. He was placed on IV antibiotics and low-dose pressors and fluid s with good resolution of his lactate and sepsis. Dr. Sommer was consulted and opted to treat this co nservatively. Follow up barium enema did not show any obvious bowel leak or perforation. During his hospital course he developed a Mobitz type 1 bradycardia. Cardiology was consulted and felt there w as no further need for pacemaker. He slowly improved over the course of his hospitalization with no further abdominal pain and minimal tenderness on exam. Dr. Sommer felt comfortable sending him [facility] further rehab to finish another 7 days of p.o. antibiotics. He will follow up with Dr. Sommer as an outpatient. CONDITION ON DISCHARGE: Good. DISCHARGE MEDICATIONS: Please see discharge medication form. FOLLOW UP: He will follow up with Dr. Sommer in 2 weeks, sooner with any increased abdominal pain. H e will be going to [facility] for ongoing rehab. Follow up with this primary care physician post SNF rehab. Total time spent with patient on the day of discharge and coordination of care is 35 minutes. /[id number]/MODL
--- NOTE | 2018-06-20 14:05 | ASMTLACE ---
LACE Length of stay for Answers: 4-6 days current admission Acuity / Level of Answers: Yes Care: Did the patient have an inpatient admission? Comorbidities - select Answers: Diabetes (uncontrolled or all that apply controlled) Moderate or severe liver or renal disease Other Notes: HTN; Hypothyroid; Ulcer ati ve dolitis # of Emergency department Answers: 1-2 visits in the last 6 months Score: 14 Date Signed: 06/20/2018 02:04 PM Electronically Signed By:Maame Loco
--- NOTE | 2018-06-20 14:07 | ASMTDCNOTE ---
Case Management Discharge Discharge Order Complete? Answers: Yes Patient to Obtain Answers: Other Notes: [facility] Transportation Arranged Answers: Other Notes: [facility] will Pick (Date 06/20/2018 03:30 PM & Time) Faxed Final Orders Answers: Yes Agency/Facility Transfer Answers: Yes Report Printed & Faxed to Receiving Agency Family Notified Answers: Yes Discharge Comments Notes: Pt going to [facility]. Date Signed: 06/20/2018 02:07 PM Electronically Signed By:Maame Loco
[2018-06-21] MEDS ORDERED: LEVOTHYROXINE 100 MCG TAB PO SCH (06:00)
== END 2018-06-20 15:43 | DRG 871 ==
LOC: EDUNIT# → OBSVTOIN 13:53 → F2N 15:20 → F2W 06-18 14:53
PROVIDERS: ADMIT Internal Medicine; ATTEND Internal Medicine
PROC: 02HV33Z Insertion of Infusion Device into Superior Vena Cava, Percutaneous Approach (ICD-10-PCS; principal; 2018-06-14)
DX: A41.9 Sepsis, unspecified organism (principal); R65.21 Severe sepsis with septic shock; K66.8 Other specified disorders of peritoneum; N17.9 Acute kidney failure, unspecified; I44.1 Atrioventricular block, second degree; E87.6 Hypokalemia; E11.9 Type 2 diabetes mellitus without complications; I12.9 Hypertensive chronic kidney disease with stage 1 through stage 4 chronic kidney disease, or unspecified chronic kidney disease; N18.9 Chronic kidney disease, unspecified; E03.9 Hypothyroidism, unspecified; J44.9 Chronic obstructive pulmonary disease, unspecified; E78.5 Hyperlipidemia, unspecified; K21.9 Gastro-esophageal reflux disease without esophagitis; M25.569 Pain in unspecified knee; K51.90 Ulcerative colitis, unspecified, without complications; Z93.2 Ileostomy status; Z85.51 Personal history of malignant neoplasm of bladder; Z91.81 History of falling; Z87.891 Personal history of nicotine dependence
CPT/HCPCS: 82947-QW; 96365; 97110-GP; 97116-GP; 97162-GP; 97166-GO; 97530-GO; 97530-GP; 97535-GO; C1751; J0696; J1170; J2405; J3475; J3480; P9041

== ENCOUNTER 2018-06-25 11:49 | Inpatient (IN) | payer OTHER ==
--- NOTE | 2018-06-25 12:06 | EDPHY ---
H & P Stated Complaint: weakness, frequent falls--decreased appetite Time Seen by Provider: 06/25/18 12:05 - Medical/Surgical History Hx Asthma: No Hx Chronic Respiratory Disease: No Hx Diabetes: No Hx Cardiac Disease: No Hx Renal Disease: No Hx Cirrhosis: No Hx Alcoholism: No Hx HIV/AIDS: No Hx Splenectomy or Spleen Trauma: No Other PMH: hypothyroid, ulcerative colitis w/ileostomy, hyperlipidemia, sepsis - Social History Smoking Status: Former smoker Constitutional: Initial Vital Signs Temperature (C) 36.8 C 06/25/18 11:55 Heart Rate 111 H 06/25/18 11:55 Respiratory Rate 16 06/25/18 11:55 Blood Pressure 105/72 06/25/18 11:55 O2 Sat (%) 95 06/25/18 11:55 O2 Delivery Mode Room Air Allergies/Adverse Reactions: piperacillin sodium [From Zosyn] Allergy (Unknown, Verified 09/05/10 18:22) Hives tazobactam sodium [From Zosyn] Allergy (Unknown, Verified 09/05/10 18:22) Hives Sulfa (Sulfonamide Antibiotics) Allergy (Verified 02/08/17 06:19) Home Medications: Medication Instructions Recorded Simvastatin [Zocor] 20 mg PO HS 05/11/16 Montelukast Sodium [Singulair 10 10 mg PO DAILY@1800 02/08/17 mg (*)] Benzocaine/Menthol 15/4 [Cepacol 1 ea PO PRN PRN lozenge 06/19/18 Lozenge] Cefdinir [Omnicef (*)] 300 mg PO BID #8 cap 06/19/18 Ferrous Sulfate [Ferrous Sulf 325 325 mg PO DAILY #30 tab 06/19/18 MG (*)] Metronidazole 500 mg PO TID #13 tablet 06/19/18 Nystatin Susp [Mycostatin Oral 5 ml PO BID #50 ml 06/19/18 Liquid] Pantoprazole Sodium [Protonix 40mg 40 mg PO DAILY #30 tab 06/19/18 (*)] Phenol [Chloraseptic spray (*)] 1 spray PO PRN PRN btl 06/19/18 Levothyroxine [Synthroid 100 mcg 100 mcg PO DAILY06 06/20/18 (*)] Medical Decision Making ED Course/Re-evaluation: CHIEF COMPLAINT: Failure to thrive HISTORY OF PRESENT ILLNESS: The patient is an 82 y/o male who is failing to thrive and complaining of odynophagia and dysphagia at [facility]. He was admitted for about 1 week after he had complications after a endoscopy. It was believed he may have had a perferation but it was not confirmed. His sone reports [facility] has not been providing soft enough foods and as such his father is only receiving about 500 calories per day. His other son spoke with Dr. Sommer who advised him to bring his father to the ED. Further, gastroenterology would like to see him this week for follow up. The patient reports continued odynophagia and dysphagia. He denies any other associated symptoms. He reports normal ostomy output. REVIEW OF SYSTEMS: A comprehensive 10 system review of systems is otherwise negative aside from elements mentioned in the history of present illness and medical decision making. PHYSICAL EXAM: HR, BP, O2 Sat, RR. Temp noted General Appearance: Alert, well hydrated, appropriate, and non-toxic appearing. Slightly thin in appearance. Head: Atraumatic without scalp tenderness or obvious injury Eyes: Pupils equal, round, reactive to light and accommodation, EOMI, no trauma , no injection. Ears: Clear bilaterally, no perforation, normal landmarks Nose: Atraumatic, no rhinorrhea, clear. Throat: There is no erythema or exudates, no lesions, normal tonsils, mucus membranes moist. Neck: Supple, 2+ carotid upstroke, nontender, no lymphadenopathy. Respiratory: No retractions, no distress, no wheezes, and no accessory muscle use. Lungs are clear to auscultation bilaterally. Cardiovascular: Regular rate and rhythm, no murmurs, rubs, or gallops. Good capillary refill all extremities. Gastrointestinal: Abdomen is soft, nontender, non-distended, no masses, no rebound, no guarding, no peritoneal signs. Musculoskeletal: Normal active ROM of all extremities, atraumatic. Neurological: Alert, appropriate, and interactive. Skin: No rashes, good turgor, no nodules on palpation. Past medical history: Hypothyroid, ulcerative colitis with ileostomy, hyperlipidemia, sepsis Past surgical history: Ileostomy Family history: Non-contributory Social history: Son at bedside, lives in [place], retired DIFFERENTIAL DIAGNOSIS: The differential diagnosis for this patient's failure to thrive included but was not limited to esophageal perforation, mass, and depression MEDICAL DECISION MAKING: The patient presents with failure to thrive, odynophagia, and dysphagia. He has previously had a full workup and was directed to return by Dr. Sommer. Dr. Sommer requests his admission for further workup for odynophagia and dysphagia. The patient agrees to this course of action. - Data Points Laboratory Results: 06/25/18 12:32 POC Hgb 13.9 gm/dL gm/dL (13.7-17.5) POC Hct 41 % % (40-51) POC Sodium 139 mEq/L mEq/L (135-145) POC Potassium 3.7 mEq/L mEq/L (3.3-5.0) POC Chloride 104 mEq/L mEq/L (97-110) POC BUN 12 mg/dL mg/dL (7-23) POC Creatinine 0.9 mg/dL mg/dL (0.7-1.3) POC Glucose 128 mg/dL H mg/dL (70-100) Point of Care Test Results: Chemistry 06/25/18 12:32 POC Sodium 139 mEq/L mEq/L (135-145) POC Potassium 3.7 mEq/L mEq/L (3.3-5.0) POC Chloride 104 mEq/L mEq/L (97-110) POC BUN 12 mg/dL mg/dL (7-23) POC Creatinine 0.9 mg/dL mg/dL (0.7-1.3) POC Glucose 128 mg/dL H mg/dL (70-100) ISTAT H&H 06/25/18 12:32 POC Hgb 13.9 gm/dL gm/dL (13.7-17.5) POC Hct 41 % % (40-51) Departure - Departure Disposition: [facility] Inpatient Acute Clinical Impression: Odynophagia, Failure to thrive in adult Dysphagia Qualifiers: Dysphagia type: unspecified Qualified Code(s): R13.10 - Dysphagia, unspecified Condition: Fair Report Scribed for: Ho Jaimes Report Scribed by: Gloria Leblanc Date of Report: 06/25/18 Time of Report: 12:58
[2018-06-25] MEDS ORDERED: ONDANSETRON DISINTEGRATING 4 MG TAB PO PRN (13:12)
[2018-06-25] MEDS ORDERED: NS 1,000 ML IV ONE (13:12)
[2018-06-25] MEDS ORDERED: ONDANSETRON 4 MG/2 ML VIAL IVP PRN (13:12)
[2018-06-25] MEDS ORDERED: ACETAMINOPHEN 325 MG TAB PO PRN (13:12)
--- NOTE | 2018-06-25 13:38 | PDGENHP ---
History and Physical - Chief Complaint Dysphagia - History of Present Illness Manuel Woody is a 82 yo M with a PMHx of UC s/p ileosteomy, bladder cancer, HLD, hypothyroidism, COPD, recent hospitalization for possible bowel perforation who presents to [facility] for failure to thrive and dysphagia. Patient reports that for the past few weeks he has had pain with swallowing regular food. He denies any coughing, choking, nausea, vomiting, diarrhea, constipation , abdominal pain, hematemesis. He reports that he is able to eat and drink liquids and soft foods without significant pain. He is concerned because he has been in a shelter after recent discharge from the hospital and they have been giving him regular food that he has been refusing therefore not getting enough calories. He reports that he had an upper endoscopy by Dr. Patricia a few months ago who performed a dilation. History Information - Allergies/Home Medication List Allergies/Adverse Reactions: piperacillin sodium [From Zosyn] Allergy (Unknown, Verified 09/05/10 18:22) Hives tazobactam sodium [From Zosyn] Allergy (Unknown, Verified 09/05/10 18:22) Hives Sulfa (Sulfonamide Antibiotics) Allergy (Verified 02/08/17 06:19) Home Medications: Simvastatin [Zocor] 20 mg PO HS 05/11/16 [Last Taken 06/24/18 21:00] Montelukast Sodium [Singulair 10 mg (*)] 10 mg PO DAILY@1800 02/08/17 [Last Taken 06/25/18 08:00] Levothyroxine [Synthroid 100 mcg (*)] 100 mcg PO DAILY06 06/20/18 [Last Taken 08:00] Benzocaine/Menthol 15/ [Cepacol Lozenge] 1 ea PO TID PRN 06/25/18 [Last Taken Unknown] Phenol [Chloraseptic spray (*)] 1 spray PO DAILY PRN 06/25/18 [Last Taken Unknown] I have personally reviewed and updated: family history, medical history, social history, surgical history - Past Medical History COPD, diabetes type 2, hyperlipidemia Additional medical history: CKD, UC, Bladder cancer, CKD - Surgical History Additional surgical history: UC s/p ileostomy - Family History Positive for: non-pertinent - Social History Smoking Status: Former smoker Review of Systems Review of Systems: ROS: 10pt was reviewed & negative except for what was stated in HPI & below Physical Exam Physical Exam: Temp Pulse Resp BP Pulse Ox 36.8 C 75 16 97/66 L 97 06/25/18 13:29 06/25/18 13:29 06/25/18 13:29 06/25/18 13:29 06/25/18 13:29 Constitutional: no apparent distress, chronically ill appearing Eyes: PERRL Ears, Nose, Mouth, Throat: dry mucous membranes Cardiovascular: tachycardia Respiratory: no respiratory distress, clear to auscultation Gastrointestinal: soft, non-tender abdomen, other (Ileostomy in place) Genitourinary: no bladder tenderness Skin: warm Neurologic: AAOx3 Psychiatric: interacting appropriately Lab Data & Imaging Review POC Hgb 13.9 gm/dL (13.7-17.5) 06/25/18 12:32 POC Hct 41 % (40-51) 06/25/18 12:32 POC Sodium 139 mEq/L (135-145) 06/25/18 12:32 POC Potassium 3.7 mEq/L (3.3-5.0) 06/25/18 12:32 POC Chloride 104 mEq/L (97-110) 06/25/18 12:32 POC BUN 12 mg/dL (7-23) 06/25/18 12:32 POC Creatinine 0.9 mg/dL (0.7-1.3) 06/25/18 12:32 POC Glucose 128 mg/dL (70-100) H 06/25/18 12:32 Urine Color ANY 06/25/18 12:46 Urine Appearance CLEAR 06/25/18 12:46 Urine pH 5.0 (5.0-7.5) 06/25/18 12:46 Ur Specific [place] 1.030 (1.002-1.030) 06/25/18 12:46 Urine Protein NEGATIVE (NEGATIVE) 06/25/18 12:46 Urine Ketones NEGATIVE (NEGATIVE) 06/25/18 12:46 Urine Blood NEGATIVE (NEGATIVE) 06/25/18 12:46 Urine Nitrate NEGATIVE (NEGATIVE) 06/25/18 12:46 Urine Bilirubin NEGATIVE (NEGATIVE) 06/25/18 12:46 Urine Urobilinogen NEGATIVE EU (0.2-1.0) 11/18/18 12:46 Ur Leukocyte Esterase TRACE (NEGATIVE) H 06/25/18 12:46 Urine RBC 1-3 /hpf (0-3) 06/25/18 12:46 Urine WBC 1-3 /hpf (0-3) 06/25/18 12:46 Ur Epithelial Cells NONE SEEN /lpf (NONE-1+) 06/25/18 12:46 Urine Bacteria TRACE /hpf (NONE SEEN) H 06/25/18 12:46 Urine Mucus 2+ /lpf (NONE-1+) H 06/25/18 12:46 Urine Glucose NEGATIVE (NEGATIVE) 06/25/18 12:46 Assessment & Plan Assessment: Dysphagia (Acute) - Reports symptoms for ~1 month, believes started after upper endoscopy by Dr. Patricia, reports there was dilation that was performed - Reports dysphagia with regular foods, not with liquids or soft food - Denies abdominal pain, n/v, d/c, hematemesis, coughing/choking with eating - Recent admission for possible bowel perforation seen on CT on 06/13, barium enema performed which was negative - Will order Barium swallow as initial evaluation - Order CHILD CARE COORDINATOR consult - Order soft mechanical diet - Will consult GI for further evaluation and management given recent EGD by Dr. Patricia Failure to thrive in adult (Acute) - Son reports that patient has only been receiving ~500 kcal day due to refusing regular food - Labs WNL on admission including BUN/Cr, although appears dehydrated with dry mucous membranes - Management of dysphagia as above - Will give IVF on admission, appears dehydrated - Will consult chemic mangler, PT/OT, CHILD CARE COORDINATOR Chronic Medical conditions: Hypothyroidism, HLD, Ulcerative colitis, bladder cancer - Continue home medications after med rec complete FEN: IVF ordered, Mechanical diet DVT PPx: Lovenox ordered Code: FULL Dispo: Admit to Observation, pending clinical course
--- NOTE | 2018-06-25 14:46 | ASMTCMCOM ---
CM Note CM Note Notes: Pt presented to the ED through triage w/his son, Chao ([phone]); pt is coming from [facility] for weakness & decreased intake due to continued dysphagia & odynophagia. Pt is also reporting an overall decreased appetite. There are concerns for FTT. Pt was recently discharged from [facility] to on 06/20/18 ;pt had been admitted for possible bowel perforation & sepsis. See H&P for additional background medical info. Spoke w/pt & Chao; they state although pt has a decreased appetite, pt has not been offered the appropriate food as they have requested/discussed at . Chao states he spoke w/various care team members in a care meeting at (including the chemist enzymes) & as he understood it they all agreed to provide pt a "soft diet" menu. Chao states he continued to visit pt & see that he was being provided a regular diet meal & when he reminded staff that the pt can't eat/swallow that type of food they simply offered him a yogurt or some cream of wheat. Chao is concerned that pt is not receiving enough caloric intake. Chao also requested that they provide pt w/supplemental meals like shakes, etc. but he has yet to see them given to the pt. In addition, Chao had mentioned he requested they draw a repeat H&H due to pt's recently low Hct & they said they would but have not actually followed through. Overall, Chao is concerned & frustrated w/the nutrition & some of the care pt is receiving (or not receiving) at . This CM spoke w/Amy RN, & Yoselyn, Dietitian at . Amy states pt has been provided w/Ensure shakes & that he also ate a bowl of cream of wheat this morning. Amy states pt has had continued difficulty & pain while swallowing food despite being given Nystatin oral solution & throat spray. Yoselyn states that she spoke w/Chao & pt separately about continuing the pt's regular diet order but instructed the pt & Chao to indicate "ground or pureed" next to the item they chose if the pt didn't think they could tolerate it in regular form. Yoselyn was doing this approach vs. changing his diet to "soft" so that pt had more options, etc. Yoselyn states she also wrote an order for 'no added sugar shakes' this past week but that the order still needed to be signed by the physician. Yoselyn feels like she was very clear w/her communication to the pt & to Chao but obviously communication/comprehension could be improved. Chao mentioned that pt may be depressed or that there may be some "psychological" reason for pt's continued dysphagia/odynophagia & decreased appetite. This CM also spoke w/Enrique, Winchman/Crane Operator & the weekend Mgr on Duty at & requested pt's SW follow-up w/pt re:mental health,etc. Overall, pt was brought into the ED by Chao because pt's other son, Sathish Woody ([phone]) who lives in [place], called Dr Young Sommer who saw pt during last admission (& has known pt & family for >25 yrs) & Dr Sommer recommended pt come to the ED today. Pt's listed MDPOA is his other son, Franklyn Woody ([phone]) who lives in [place]. This CM offered to assist w/improving communication re:pt's needs to , providing any new orders, etc. in order for pt to return to (or possibly even a different SNF rehab) but per ED MD, Dr Sommer wants pt to be admitted for further evaluation of his symptoms. Chao states he is flying out tomorrow morning & will be gone for a week. Pt is now on Full Liquid Diet. Videofluoro speech study xray ordered for tomorrow morning. GI consult & Dietary consult ordered, PT/OT/DIRECT CARE PROVIDER ordered. Anticipate pt to stabilize & DC back to or other SNF rehab. CM to follow. Date Signed: 06/25/2018 02:45 PM Electronically Signed By:Emy Hannon RN
[2018-06-25] MEDS: NS 1,000 ML IV SCH ×2 (14:49→21:49)
[2018-06-25] MEDS: MONTELUKAST SODIUM 10 MG TAB PO SCH (18:31)
[2018-06-25] MEDS: ATORVASTATIN CALCIUM 10 MG TAB PO SCH (21:50)
[2018-06-26 05:41] LABS: PLATELET COUNT 401 10^3/uL (150-400)
[2018-06-26] MEDS: LEVOTHYROXINE 100 MCG TAB PO SCH (07:04)
[2018-06-26] MEDS: NS 1,000 ML IV SCH (07:04)
[2018-06-26] MEDS: PHENOL 177 ML THROAT SPRAY PO PRN (07:35)
[2018-06-26] MEDS: PANTOPRAZOLE SODIUM 40 MG TAB PO SCH (10:01)
[2018-06-26] MEDS: FERROUS SULFATE 325 MG TAB PO SCH (10:01)
[2018-06-26] MEDS: ENOXAPARIN 40 MG/0.4 ML SYR SC SCH (10:01)
--- NOTE | 2018-06-26 10:24 | SOAPPROG ---
SOAP Progress Note Assessment/Plan: Assessment: 82 y/o M with hx of UC and ileostomy, bladder CA, Hyperlipidemia and COPD. S/p recent hospitalization for possible bowel perforation. Gastrografin enema negative. Now admitted with dysphagia and FTT. S: Reports difficulty swallowing and pain in his throat with food. Started 2 weeks ago. O: Alert Afebrile RRR No increased WOB Abdomen soft, nontender, +BS, ileostomy pink Plan: Swallow study today. Hopefully won't need surgery. 06/26/18 10:22 Objective: Vital Signs Temp Pulse Resp BP Pulse Ox 36.3 C 95 14 97/54 L 92 06/26/18 07:16 06/26/18 07:16 06/26/18 07:16 06/26/18 07:16 06/26/18 07:16 Laboratory Results 06/26/18 05:27 06/26/18 05:27 06/25/18 06/26/18 06/27/18 05:59 05:59 05:59 Intake Total 8345 579 Output Total 750 600 Balance 2195 -21 ICD10 Worksheet Patient Problems: Problems Problem Status Onset Dysphagia Acute Failure to thrive in adult Acute Odynophagia Acute Diaphoresis Acute Hypothyroid Acute Vomiting Acute
--- NOTE | 2018-06-26 11:53 | HOSPPROG ---
Hospitalist Progress Note Assessment/Plan: Dysphagia (Acute) - Reports symptoms for ~1 month, believes started after upper endoscopy by Dr. Patricia, reports there was dilation that was performed - Reports dysphagia with regular foods, not with liquids or soft food - Denies abdominal pain, n/v, d/c, hematemesis, coughing/choking with eating - Recent admission for possible bowel perforation seen on CT on 06/13, barium enema performed which was negative - Ordered Barium swallow as initial evaluation - Ordered EQUIPMENT MAINTENANCE SUPERVISOR consult - Order soft mechanical diet - Consulted GI for further evaluation and management given recent EGD by Dr. Patricia Failure to thrive in adult (Acute) - Son reports that patient has only been receiving ~500 kcal day due to refusing regular food - Labs WNL on admission including BUN/Cr, although appears dehydrated with dry mucous membranes - Management of dysphagia as above - S/p IVF on admission, appears dehydrated - Will consult lab specialist, PT/OT, EQUIPMENT MAINTENANCE SUPERVISOR Chronic Medical conditions: Hypothyroidism, HLD, Ulcerative colitis, bladder cancer - Continue home medications FEN: IVF ordered, Mechanical diet DVT PPx: Lovenox ordered Code: FULL Dispo: Admit to Observation, likely d/c tomorrow after GI and EQUIPMENT MAINTENANCE SUPERVISOR evaluations Subjective: Patient reports continued pain with swallowing this AM Objective: Vital Signs Temp Pulse Resp BP Pulse Ox 36.3 C 95 14 97/54 L 92 06/26/18 07:16 06/26/18 07:16 06/26/18 07:16 06/26/18 07:16 06/26/18 07:16 Laboratory Results 06/26/18 05:27 06/26/18 05:27 06/25/18 06/26/18 06/27/18 05:59 05:59 05:59 Intake Total 2945 579 Output Total 750 600 Balance 2195 -21 - Physical Exam Constitutional: no apparent distress, chronically ill appearing Eyes: PERRL Ears, Nose, Mouth, Throat: moist mucous membranes Cardiovascular: regular rate and rhythym Respiratory: no respiratory distress Gastrointestinal: soft, non-tender abdomen Skin: warm Neurologic: AAOx3 Psychiatric: interacting appropriately ICD10 Worksheet Patient Problems: Problems Problem Status Onset Dysphagia Acute Failure to thrive in adult Acute Odynophagia Acute Diaphoresis Acute Hypothyroid Acute Vomiting Acute
--- NOTE | 2018-06-26 14:54 | SOAPPROG ---
SOAP Progress Note Assessment/Plan: Assessment:Plan: see full dictated consult to follow video swallow is not nml but does not have the abnormalities to account for his sx's since his sx's seem to have progressed since last egd then repeat EGD is recommended with up to 60 bangladeshi Savary dilation EGD in am Rickey Torre MD [phone] 06/26/18 14:52 Objective: Vital Signs Temp Pulse Resp BP Pulse Ox 36.8 C 109 H 14 93/56 L 93 06/26/18 12:46 06/26/18 12:46 06/26/18 12:46 06/26/18 12:46 06/26/18 12:46 Laboratory Results 06/26/18 05:27 06/26/18 05:27 06/25/18 06/26/18 06/27/18 05:59 05:59 05:59 Intake Total 2507 579 Output Total 765 650 Balance 2195 -71 ICD10 Worksheet Patient Problems: Problems Problem Status Onset Dysphagia Acute Failure to thrive in adult Acute Odynophagia Acute Diaphoresis Acute Hypothyroid Acute Vomiting Acute
--- NOTE | 2018-06-26 15:43 | GCON ---
REFERRING PHYSICIAN: Gustavo Dumont DO INDICATION FOR CONSULTATION: Dysphagia. HISTORY OF PRESENT ILLNESS: I have been asked by Dr. Dumont to see this patient in consultation for a chief complaint of dysphagia. He was seen recently by my partner, Dr. Patricia, for similar issues and underwent an EGD with 54-Paraguayan Savary dilation in May, which did not show significant findings, maybe a mild Schatzki's ring. He says he was doing well until he had an event in early April where he collapsed at home, although he denies any loss of consciousness, and was on the floor for hours and found by his son and brought into the hospital. He describes significant worsening of dysphagia at that time to solids, but not to liquids. He does not really complain of any odynophagia, although he has an aversion to swallowing. He has no early satiety , but he has weight loss secondary to decreased p.o. intake. He does not complain of heartburn, regurgitation, nausea or vomiting, nor significant choking. When I asked if it goes down the wrong pipe, he says only when it does , which is not often. He did have a CT scan performed as an outpatient that was markedly abnormal. This was followed up when he was an inpatient and treated with only antibiotics and no surgery. His abdominal pain from that event has resolved and not recurred. He is now admitted to the hospital with failure to thrive and dysphagia. I am called to help and evaluate and treat in that regard. PAST MEDICAL/SURGICAL HISTORY: COPD, type 2 diabetes, hyperlipidemia, chronic kidney disease, ulcerative colitis status post total colectomy, bladder cancer status post cystoscopies. Surgeries are total colectomy status post ileostomy. FAMILY HISTORY: No colon cancer or colon polyps. SOCIAL HISTORY: He quit tobacco many years ago. He does not drink any alcohol currently. MEDICATIONS AT HOME: Include Zocor, Singulair, Synthroid, Cepacol lozenges and Chloraseptic spray. MEDICATIONS IN HOSPITAL: Include Tylenol p.r.n., Lipitor 10 mg daily, Lovenox 40 mg subcutaneously daily, ferrous sulfate 325 mg daily, Synthroid 100 mcg daily, Singulair 10 mg daily, Zofran p.r.n., Protonix 40 mg daily, Chloraseptic spray p.r.n., throat lozenges p.r.n. ALLERGIES: To penicillins (gives hives). REVIEW OF SYSTEMS: A complete review of systems was performed and is negative other than noted in the HPI. PHYSICAL EXAMINATION: GENERAL: Elderly male sitting in his chair, in no acute distress. VITAL SIGNS: Blood pressure 93/56, pulse is 95, respirations are 14. He is 93% on room air. Temperature 36.8. EYES: Anicteric. EMMANUEL, EOMI. Mouth: No lesions. Moist membranes. NECK: Supple. Full range of motion. No JVD. BACK: No spine tenderness. No CVA tenderness. LUNGS: Clear, but decreased breath sounds. No rhonchi or rales appreciated. ABDOMEN: Bowel sounds are normal in pitch and frequency. Abdomen is soft and nontender. His ileostomy is intact. EXTREMITIES: No cyanosis, clubbing, or edema. NEUROLOGIC : Cranial nerves intact. Nonfocal. SKIN: No stigmata of advanced liver disease. LABORATORY DATA: From the , which is today: WBC 8.40, hemoglobin 10.6, hematocrit 32.1, platelet count 401. Sodium 138, potassium 4.1, chloride 111, bicarbonate 21, BUN 8, creatinine 0.7, glucose 107, calcium 8.1. Urinalysis from yesterday was normal with 2+ urine mucus, trace bacteria, trace leukocyte esterase. Video speech fluoroscopy is not officially read. I did review it with the radiologist, and it looks like there is some vallecular pooling, but not significant findings to cause the patient's symptoms. EGD performed June 01, 2018: Possible subtle mucosal changes in the lower esophagus, status post biopsies. Savary dilation with 51-Paraguayan, no resistance. Stomach was normal. A small sessile polyp in the second portion of duodenum, status post biopsies. Pathology of the lower third of the esophagus showed Abdi's mucosa, negative for dysplasia. There was a background of reflux esophagitis. The duodenum showed duodenal mucosa without diagnostic abnormality. No evidence of polyp or dysplasia. No evidence of celiac sprue. An EGD performed December 13, 2012, revealed irregular Z-line, gastritis, and duodenitis, and biopsies of that time revealed moderate active peptic duodenitis , mild reactive gastropathy, and irregular Z-line without evidence of intestinal metaplasia. ASSESSMENT: 1. Dysphagia. 2. Failure to thrive. 3. Mildly abnormal video swallowing but does not show the degree of abnormality I would expect for the patient's symptoms. There is not an obvious cricopharyngeal hypertrophy on the EGD, although there is some impingement from some osteophytes and other bony abnormalities (not enough to cause the patient's symptoms, according to the radiologist). 4. Chronic obstructive pulmonary disease. 5. Weight loss. 6. Hypothyroidism. 7. Hypercholesterolemia. RECOMMENDATIONS: 1. EGD for evaluation of above with 60-Paraguayan Savary. 2. Continue pantoprazole for now. 3. Treatment of his other medical issues as per hospitalists. Given his multiple medical problems and COPD, this will be a higher risk procedure than normal. He did well with IV conscious sedation, so I will use that tomorrow morning as an inpatient. Thank you for allowing me to participate in the patient's healthcare. Do not hesitate to call me with any questions. Sincerely, /[id number]/MODL MTDD
--- NOTE | 2018-06-26 16:26 | ASMTCMCOM ---
CM Note CM Note Notes: CM spoke to DEVORA Durán and Dr. Dumont regarding d/c POC. Anticipate d/c for tomorrow. CM met w/ pt for dispo planning. Pt would like to return back to [facility] when medically stable. CM spoke to pts son Franklyn. Franklyn reports that it is up to pt if he wants to return back to [facility]. CM sent updates. CM to follow. Plan: [facility] Date Signed: 06/26/2018 04:26 PM Electronically Signed By:LION Craig
[2018-06-26] MEDS: MONTELUKAST SODIUM 10 MG TAB PO SCH (18:24)
[2018-06-26] MEDS: CEPACOL LOZENGE PO PRN (18:28)
[2018-06-26] MEDS: ATORVASTATIN CALCIUM 10 MG TAB PO SCH (20:16)
[2018-06-26] MEDS ORDERED: ACETAMINOPHEN 650 MG/20.3 ML UDCUP PO PRN (20:30)
[2018-06-27] MEDS: LEVOTHYROXINE 100 MCG TAB PO SCH (06:00)
[2018-06-27] MEDS: CEPACOL LOZENGE PO PRN (07:15)
[2018-06-27] MEDS ORDERED: LR 1,000 ML IV ONE (07:46)
--- NOTE | 2018-06-27 08:39 | PDPROPOC ---
Sedation Plan of Care Sedation Plan of Care: vital signs stable, mental status noted, patient educated of risks, benefits, alternatives, patient can tolerate sedation ASA Classification: ASA 3 Planned drugs: fentanyl, midazolam Mallampati Score: Class 1 Mallampati Reference Image: Patient passed 3-3-2 rule?: Yes
[2018-06-27] MEDS ORDERED: MIDAZOLAM 2 MG/2 ML VIAL ONE (08:44)
[2018-06-27] MEDS ORDERED: fentaNYL 100 MCG/2 ML INJ ONE (08:45)
--- NOTE | 2018-06-27 10:24 | GIREPORT ---
Formerly [facility], Later [facility] Surgical [facility] - Endoscopy Department Patient Name: Manuel Woody Procedure Date: 06/27/2018 8:33 AM Patient Type: Inpatient Attending MD/ ER Physician: Mat Rubi Procedure: Upper GI endoscopy Indications: Dysphagia Providers: Pete Torre MD Medicines: Propofol per Anesthesia = IV general w/o airway Complications: No immediate complications. Estimated blood loss: Minimal. Description of Procedure: After obtaining informed consent, the endoscope was passed under direct vision. Throughout the procedure, the patient's blood pressure, pulse, and oxygen saturations were monitored continuously. The Endoscope was intro duced through the mouth, and advanced to the third part of duodenum. The uppe r GI endoscopy was accomplished without difficulty. The patient tolerated th e procedure well. Findings: LA Grade D (one or more mucosal breaks involving at least 75% of esopha geal circumference) esophagitis was found in the mid and distal esophagus. Biopsies were taken with a cold forceps for histology. The entire examined stomach was normal. The duodenal bulb was normal. A mild extrinsic deformity was found in the second portion of the duode num. The exam was otherwise without abnormality. Estimated Blood Loss: Estimated blood loss was minimal. Post Op Diagnosis: - LA Grade D reflux esophagitis. Rule out Abdi's esophagus. Biopsied . No dilation as the esophagitis is the cause of his symptoms and he had dil ation in May w/o significant affect - Normal stomach. - Normal duodenal bulb. - Duodenal deformity. - The examination was otherwise normal. Recommendation: - Await pathology results. - My office will call with the pathology result with 5-7 days. If you h ave not heard from my office by 12-14, do not assume the pathology is dionne l, please call [phone] to get the pathology reults. - Advance diet as tolerated. - [facility] care. - Use Protonix (pantoprazole) 40 mg PO BID for 4 weeks. Then decresae t o once daily before breakfast. try to tpaer in 2019 as long as his symtpo ms have resolved. - Use Zantac (ranitidine) 300 mg PO at bedtime for 4 weeks. - If he has symptoms of GOO, consider UGI/SBFT or other imaging study - Thank you for allowing me to help in your patient's care. Do not hesi gomez to call with any questions. Attending Participation: I personally performed the entire procedure. Yelitza Freeman M.D Pete Torre MD 06/27/2018 10:24:17 AM This report has been signed electronicallyMathew MD Yelitza Number of Addenda: 0 Note Initiated On: 06/27/2018 8:33 AM [email or web address]
[2018-06-27] MEDS: PHENOL 177 ML THROAT SPRAY PO PRN (11:42)
[2018-06-27] MEDS: FERROUS SULFATE 325 MG TAB PO SCH (11:55)
[2018-06-27] MEDS: PANTOPRAZOLE SODIUM 40 MG TAB PO SCH (11:55)
[2018-06-27] MEDS: ENOXAPARIN 40 MG/0.4 ML SYR SC SCH (11:55)
--- NOTE | 2018-06-27 15:59 | HOSPPROG ---
Hospitalist Progress Note Assessment/Plan: The patient is a 82-year-old male with PMH ulcerative colitis, bladder cancer who was admitted for acute dysphagia. This patient is new to me. Reviewed patient's chart/records for this visit. ASSESSMENT/PLAN: Dysphagia, s/p EGD today Severe Esophagitis Gen weakness, 2/2 poor po intake, 2/2 above -FU path results of esophageal Bx. -Protonix BID, Zantac QHS x 4 weeks. -Check AM labs. -Trial GI cocktail to help w/ esoph pain. -PT/OT/ISU. VTE prophylaxis: Lovenox Code Status: Full code Status: Inpatient for greater than 2 midnight stay. [place] [facility] [place] in the next 1-2 days ____ SUBJECTIVE: Today patient continues to complain of pain after swallowing in his throat and chest. Complains of gen weakness. OBJECTIVE: Physical Exam: General: The patient is a thin male who is alert and in no acute distress. HEENT: normocephalic, extraocular movements intact, conjunctivae clear. Mucous membranes moist. Neck: trachea midline, no visible masses. Abd: soft and nondistended. Musculoskeletal: Normal muscle tone/bulk. Neuro: cranial nerves II XII grossly intact. Intact gross motor and sensory function. Psych: Appropriate mood and appropriate affect. Skin: No pallor. No petechiae. Heme/lymph: No peripheral edema at bilateral lower extremities. Labs/Imaging/Other Tests: Personally reviewed/interpreted. EGD report-LA grade D reflux esophagitis. Biopsied. Rule out Abdi's esophagus. Continue PPI. Twice daily and H2 chepe at bedtime for 4 weeks. Objective: Vital Signs Temp Pulse Resp BP Pulse Ox 37.1 C 94 24 H 106/56 L 94 06/27/18 15:06 06/27/18 15:06 06/27/18 15:06 06/27/18 15:06 06/27/18 15:06 Laboratory Results 06/26/18 05:27 06/26/18 05:27 06/26/18 06/27/18 06/28/18 05:59 05:59 05:59 Intake Total 2945 821 300 Output Total 750 1400 200 Balance 2195 -579 100 - Time Spent With Patient Time Spent with Patient: greater than 35 minutes Time Spent with Patient: Greater than 35 minutes spent on this patients care, greater than 50% of time spent counseling, educating, and coordinating care regarding the above mentioned plan. ICD10 Worksheet Patient Problems: Problems Problem Status Onset Dysphagia Acute Failure to thrive in adult Acute Odynophagia Acute Diaphoresis Acute Hypothyroid Acute Vomiting Acute
[2018-06-27] MEDS: MAG HYDROX/AL HYDROX/SIMETH 30 ML UDCUP PO SCH ×2 (17:39→23:06)
[2018-06-27] MEDS: MONTELUKAST SODIUM 10 MG TAB PO SCH (17:39)
--- NOTE | 2018-06-27 21:12 | SOAPPROG ---
SOAP Progress Note Assessment/Plan: Assessment: DOING MUCH BETTER TODAY/EATING SOME SOLID FOOD EGD REVEALS SIGNIFICANT ESOPHAGITIS HEENT NONICTERIC WITHOUT ADENOPATHY CHEST CLEAR COR REGULAR RHYTHM ABDOMEN SOFT NONTENDER IMPRESSION: GERD AND ESOPHAGITIS Plan: ANTI-REFLUX REGIMEN WITH NSAIDS/GAVISCON/HEAD OF BED ELEVATION/AVOID EATING WITHIN 2 HR OF BEDTIME/ MAY NEED CONSIDERATION FOR SHARI FUNDOPLICATION 06/27/18 21:09 Objective: Vital Signs Temp Pulse Resp BP Pulse Ox 37.5 C 104 H 16 127/68 H 91 L 06/27/18 19:32 06/27/18 19:32 06/27/18 19:32 06/27/18 19:32 06/27/18 19:32 Laboratory Results 06/26/18 05:27 06/26/18 05:27 06/26/18 06/27/18 06/28/18 05:59 05:59 05:59 Intake Total 2945 821 2035 Output Total 750 1400 700 Balance 0467 -515 4899 ICD10 Worksheet Patient Problems: Problems Problem Status Onset Dysphagia Acute Failure to thrive in adult Acute Odynophagia Acute Diaphoresis Acute Hypothyroid Acute Vomiting Acute
[2018-06-27] MEDS: CODEINE/APAP 12MG/120MG/5 ML UDL PO PRN (21:18)
[2018-06-27] MEDS: ATORVASTATIN CALCIUM 10 MG TAB PO SCH (21:22)
[2018-06-28 05:02] LABS: PLATELET COUNT 440 10^3/uL (150-400)
[2018-06-28] MEDS: MAG HYDROX/AL HYDROX/SIMETH 30 ML UDCUP PO SCH ×4 (05:09→21:20)
[2018-06-28] MEDS: LEVOTHYROXINE 100 MCG TAB PO SCH (05:20)
[2018-06-28] MEDS: PANTOPRAZOLE SODIUM 40 MG TAB PO SCH (08:16)
[2018-06-28] MEDS: CODEINE/APAP 12MG/120MG/5 ML UDL PO PRN (08:16)
[2018-06-28] MEDS: FERROUS SULFATE 325 MG TAB PO SCH (08:16)
[2018-06-28] MEDS: ENOXAPARIN 40 MG/0.4 ML SYR SC SCH (08:17)
--- NOTE | 2018-06-28 10:41 | SOAPPROG ---
SOAP Progress Note Assessment/Plan: Assessment: 82 y/o M with hx of UC and ileostomy, bladder CA, Hyperlipidemia and COPD. S/p recent hospitalization for possible bowel perforation. Gastrografin enema negative. Now admitted with dysphagia and FTT. S/p EGD. Severe reflux and esophagitis S: No change. Still having pain with swallowing. O: Alert Afebrile RRR No increased WOB Abdomen soft, nontender, +BS, ileostomy pink Plan: Pt would likely benefit from reva fundoplication surgery. He is amenable to it. Will discuss with Dr. Sommer. 06/28/18 10:39 Objective: Vital Signs Temp Pulse Resp BP Pulse Ox 36.9 C 103 H 14 97/56 L 90 L 06/28/18 07:23 06/28/18 07:23 06/28/18 07:23 06/28/18 07:23 06/28/18 07:23 Laboratory Results 06/28/18 04:32 06/28/18 04:32 06/27/18 06/28/18 06/29/18 05:59 05:59 05:59 Intake Total 821 2235 Output Total 1400 900 Balance -579 1335 ICD10 Worksheet Patient Problems: Problems Problem Status Onset Dysphagia Acute Failure to thrive in adult Acute Odynophagia Acute Diaphoresis Acute Hypothyroid Acute Vomiting Acute
--- NOTE | 2018-06-28 13:43 | SOAPPROG ---
FARHAD Progress Note Assessment/Plan: Assessment:Plan: 1) GERD with grade d esophagitis - better with acid reducing meds, eating more now. I suspect this was some acute issue as he did not have this finding on his recent outpt EGD. I expect will resolve with meds and that he will be able to taper off PPI after 8 weeks as long as sx's resolve and don't recur. If he ahs any nightime sx's or wakes with n/v or HB can add QHS ranitidine 150mg or 300mg I will sing off now recall if needed thank you Subjective: CC- GEDR with grade D esophagitis improved with PPI, eating w/o much trouble Objective: Vital Signs Temp Pulse Resp BP Pulse Ox 36.6 C 108 H 14 110/62 90 L 06/28/18 11:34 06/28/18 11:34 06/28/18 11:34 06/28/18 11:34 06/28/18 11:34 Laboratory Results 06/28/18 04:32 06/28/18 04:32 06/27/18 06/28/18 06/29/18 05:59 05:59 05:59 Intake Total 821 2235 Output Total 1400 900 500 Balance -579 1335 -500 CTA S1S2 +BS, soft nt ICD10 Worksheet Patient Problems: Problems Problem Status Onset Dysphagia Acute Failure to thrive in adult Acute Odynophagia Acute Diaphoresis Acute Hypothyroid Acute Vomiting Acute
--- NOTE | 2018-06-28 15:24 | HOSPPROG ---
Hospitalist Progress Note Assessment/Plan: The patient is a 82-year-old male with PMH ulcerative colitis, bladder cancer who was admitted for acute dysphagia. ASSESSMENT/PLAN: Dysphagia, s/p EGD today Severe Esophagitis Gen weakness, improved L low back muscle strain/pain -FU path results of esophageal Bx. -Protonix BID, Zantac QHS x 4 weeks. -Check albumin per pt's family requests. -Add lidocaine patch to help w/ back pain. PT also gave recs (heating pad, stretching). -PT/OT. VTE prophylaxis: Lovenox Code Status: Full code Status: Inpatient for greater than 2 midnight stay. Disposition: [facility] with discharge anticipated tomorrow to SNF. ____ SUBJECTIVE: Today patient continues to complain of pain after swallowing but he has tolerated po intake. OBJECTIVE: Physical Exam: General: The patient is a thin male who is alert and in no acute distress. HEENT: normocephalic, extraocular movements intact, conjunctivae clear. Mucous membranes moist. Neck: trachea midline, no visible masses. Abd: soft and nondistended. Musculoskeletal: Normal muscle tone/bulk. Neuro: cranial nerves II XII grossly intact. Intact gross motor and sensory function. Psych: Appropriate mood and appropriate affect. Skin: No pallor. No petechiae. Heme/lymph: No peripheral edema at bilateral lower extremities. Labs/Imaging/Other Tests: Personally reviewed/interpreted. EGD report-LA grade D reflux esophagitis. Biopsied. Rule out Abdi's esophagus. Continue PPI. Twice daily and H2 chepe at bedtime for 4 weeks. Objective: Vital Signs Temp Pulse Resp BP Pulse Ox 36.6 C 108 H 14 110/62 90 L 06/28/18 11:34 06/28/18 11:34 06/28/18 11:34 06/28/18 11:34 06/28/18 11:34 Laboratory Results 06/28/18 04:32 06/28/18 04:32 06/27/18 06/28/18 06/29/18 05:59 05:59 05:59 Intake Total 821 2235 Output Total 6652 201 650 Balance -579 1335 -650 ICD10 Worksheet Patient Problems: Problems Problem Status Onset Dysphagia Acute Failure to thrive in adult Acute Odynophagia Acute Diaphoresis Acute Hypothyroid Acute Vomiting Acute
--- NOTE | 2018-06-28 17:01 | ASMTCMCOM ---
CM Note CM Note Notes: Pt will dc to [facility] when medically stable. Per , they have auth. DC Plan: [facility] Date Signed: 06/28/2018 05:00 PM Electronically Signed By:Susy Khanna RN
[2018-06-28] MEDS: MONTELUKAST SODIUM 10 MG TAB PO SCH (17:07)
[2018-06-28] MEDS: LIDOCAINE 4%/MENTHOL 1% PATCH TD SCH (17:11)
[2018-06-28] MEDS: PHENOL 177 ML THROAT SPRAY PO PRN (19:57)
[2018-06-28] MEDS ORDERED: PATCH REMOVAL 1 EA PATCH TD SCH (21:00)
[2018-06-28] MEDS: ATORVASTATIN CALCIUM 10 MG TAB PO SCH (21:20)
[2018-06-29] MEDS: LEVOTHYROXINE 100 MCG TAB PO SCH (05:02)
[2018-06-29] MEDS: MAG HYDROX/AL HYDROX/SIMETH 30 ML UDCUP PO SCH (05:02)
[2018-06-29] MEDS: CEPACOL LOZENGE PO PRN (05:06)
[2018-06-29 07:40] VITALS: BP 104/67
[2018-06-29] MEDS: PANTOPRAZOLE SODIUM 40 MG TAB PO SCH (08:45)
[2018-06-29] MEDS: ENOXAPARIN 40 MG/0.4 ML SYR SC SCH (08:45)
[2018-06-29] MEDS: FERROUS SULFATE 325 MG TAB PO SCH (08:45)
[2018-06-29] MEDS: LIDOCAINE 4%/MENTHOL 1% PATCH TD SCH (08:45)
[2018-06-29] MEDS ORDERED: MAG HYDROX/AL HYDROX/SIMETH 30 ML UDCUP PO PRN (09:47)
--- NOTE | 2018-06-29 09:58 | PDIAF ---
- Diagnosis Diagnosis: Severe esophagitis, GERD, dysphagia, generalized weakness/debility Code Status: Full Code - Medication Management Discharge Medications: electronically signed and located in the Home Medication List. - Orders Services needed: Registered Nurse, Physical Therapy, Occupational Therapy Home Care Face to Face: Order - Dietitian consult for dysphagia, erosive esophagitis, malnutrition Diet Recommendation: no restrictions on diet Diet Texture: Dysphagia 2 - Mechanically Altered - Chopped, Ground, Thin Liquids , Meds Whole w/Liquids Activity/Weight Bearing Restrictions: use walker Additional Instructions: FOLLOW-UP WITH DR. CHUCK SOMMER IN 1-2 WEEKS [phone]. Protonix and ranitidine may be adjusted after 4 weeks of therapy. - Labs/Radiology BMP Date: 07/19/18 (check Magnesium also.) CBC w/diff Date: 07/19/18 Other Lab Name, Date and Time: Magnesium level on 07/19/18. - Follow Up Care Current Providers and Referrals: IVAN IVY [Primary Care Provider] - follow up in 1 week Chuck Sommer MD [Medical Doctor] - follow up in 2 weeks (to discuss possible surgery)
--- NOTE | 2018-06-29 10:05 | PDDCSUM ---
Discharge Summary Discharge Summary: Date of Admission: June 25, 2018 Date of Discharge: June 29, 2018 Discharge Diagnoses: Severe reflux esophagitis Dysphagia, secondary to above Generalized weakness and debility, improved Protein calorie malnutrition Left low back muscle strain, improved Admission Diagnoses: Dysphagia Failure to thrive Chronic medical diagnoses: COPD, type 2 diabetes, hyperlipidemia, CKD, ulcerative colitis status post colectomy, bladder cancer status post cystoscopies, history of tobacco use. Consultants: [place]-Dr. Torre [facility] Course: The patient is an 82-year-old male who was admitted for severe, worsening dysphagia over the course of 1 month which resulted in loss of appetite and weight loss. Patient had undergone an EGD with balloon procedure in May. Patient underwent barium swallow study which showed mild dysphagia but did not explain the patient's symptoms. Patient went through EGD which revealed severe esophagitis a biopsy was performed to rule out Abdi's esophagus (pathology result pending). GI recommended that the patient take Protonix twice a day along with Zantac at night for 4 weeks. Since the esophagitis was new, compared to the prior EGD, patient is expected to respond quickly to medical therapy. General surgery offered to do Saritha fundoplication to help with acid reflux. Patient may follow up as an outpatient to discuss this option further. Patient was medically stable and [facility], to continue physical therapy and received additional nursing care. Patient needs to see a dietitian to discuss reflux/dysphagia diet and malnutrition. Labs have been ordered for general medical monitoring in about 2 weeks. Condition: Stable Discharged to: SNF. Pertinent tests/labs/imaging: Video fluoroscopic speech study: Mild pharyngeal dysphagia, with no evidence of aspiration. EGD: LA Grade D reflux esophagitis. Biopsy performed. Medications: Please see med rec form. Home meds have been resumed. Protonix was increased to twice a day for 4 weeks. New meds: Zantac 300 mg p.o. At bedtime. Maalox as needed for indigestion or discomfort with swallowing. Special instructions: GI should be calling with pathology result of esophageal biopsy in 5-7 days. If you have not heard from GI by 07/21, call them at [phone] to get pathology results. Follow up: General surgery, Dr. Monty oSmmer-in 1-2 weeks. PCP in 1 week. Greater than 30 minutes of total time was spent on counseling and coordination of care for this patient's discharge.
--- NOTE | 2018-06-29 10:49 | SOAPPROG ---
SOAP Progress Note Assessment/Plan: Assessment: 82yo M c esophagitis c paraesophageal hernia - pain has resolved - plan to tx back to rehab, cont med management. Plan for outpatient repair and Saritha Plan: 06/29/18 10:49 Objective: Vital Signs Temp Pulse Resp BP Pulse Ox 36.8 C 111 H 16 104/67 94 06/29/18 07:38 06/29/18 07:38 06/29/18 07:38 06/29/18 07:38 06/29/18 07:38 Laboratory Results 06/28/18 04:32 06/29/18 04:37 06/28/18 06/29/18 06/30/18 05:59 05:59 05:59 Intake Total 2235 800 Output Total 900 0745 400 Balance 1335 -675 -400 ICD10 Worksheet Patient Problems: Problems Problem Status Onset Dysphagia Acute Failure to thrive in adult Acute Odynophagia Acute Diaphoresis Acute Hypothyroid Acute Vomiting Acute
--- NOTE | 2018-06-29 10:52 | ASMTDCNOTE ---
Case Management Discharge Discharge Order Complete? Answers: Yes Patient to Obtain Answers: Other Notes: [facility] Medications Transportation Arranged Answers: Other Notes: from [facility] w/c van arranged by [facility] care Faxed Final Orders Answers: Yes Notes: to [facility] Agency/Facility Transfer Answers: Yes Notes: to [facility] Report Printed & Faxed to Receiving Agency Discharge Comments Notes: 06/29/2018 Case Management Note Faxed final orders to [facility]. [facility] arranged transport with from [facility]. Pt signed IM. RN called report. Case Management d/c: [facility] Date Signed: 06/29/2018 10:52 AM Electronically Signed By:Kari Meyer RN
--- NOTE | 2018-06-29 10:53 | ASMTLACE ---
LACE Length of stay for Answers: 4-6 days current admission Acuity / Level of Answers: Yes Care: Did the patient have an inpatient admission? Comorbidities - select Answers: Chronic pulmonary disease all that apply Diabetes (uncontrolled or controlled) Moderate or severe liver or renal disease Other Notes: Hx of bladder cancer. P t has ulcerative colitis and an ileostomy. CKD, HLD, hy pot hyroidism. Pt's son say s pt doesn't have DM but pt used to take Metformin and has BGLs taken BID. # of Emergency department Answers: 1-2 visits in the last 6 months Score: 16 Date Signed: 06/29/2018 10:53 AM Electronically Signed By:Kari Meyer RN
--- NOTE | 2018-06-29 10:53 | ASDISCHSUM ---
Discharge Information Plan Status:SNF Medically Cleared to Leave:06/28/2018 Discharge Date:06/28/2018 CM D/C Disposition:Jail Facility ADT D/C Disposition:Jail Facility Projected Discharge Date:06/27/2018 11:00 AM Transportation at D/C:Wheelchair Van Discharge Delay Reason: Follow-Up Date:06/27/2018 11:00 AM Discharge Slot: Final Diagnosis: Placement Information Referral Type:*Assisted/SNF Referral ID:[id number] [facility] Address 1:[address] Address 2: City:[place] Selection Factors: State:[place] Patient Contact Information Contact Name:THEA Relationship:Son Address: City:[place] Alternate Phone: State/Zip Code:[place] [address] Email: Financial Information Financial Class:Medicare Advantage Plans Primary Plan Desc:[employer] CHOICE PPO MEDICARE Primary Plan Number:[id number] Secondary Plan Desc: Secondary Plan Number: Assessment Information [facility] CM Progress Note CM Note CM Note Notes: Pt presented to the ED through triage w/his son, Chao ([phone]); pt is coming from [facility] for weakness & decreased intake due to continued dysphagia & odynophagia. Pt is also reporting an overall decreased appetite. There are concerns for FTT. Pt was recently discharged from [facility] to on 06/20/18 ;pt had been admitted for possible bowel perforation & sepsis. See H&P for additional background medical info. Spoke w/pt & Chao; they state although pt has a decreased appetite, pt has not been offered the appropriate food as they have requested/discussed at . Chao states he spoke w/various care team members in a care meeting at (including the towing pilot) & as he understood it they all agreed to provide pt a "soft diet" menu. Chao states he continued to visit pt & see that he was being provided a regular diet meal & when he reminded staff that the pt can't eat/swallow that type of food they simply offered him a yogurt or some cream of wheat. Chao is concerned that pt is not receiving enough caloric intake. Chao also requested that they provide pt w/supplemental meals like shakes, etc. but he has yet to see them given to the pt. In addition, Chao had mentioned he requested they draw a repeat H&H due to pt's recently low Hct & they said they would but have not actually followed through. Overall, Chao is concerned & frustrated w/the nutrition & some of the care pt is receiving (or not receiving) at . This CM spoke w/Amy, RN, & Yoselyn, Dietitian at . Amy states pt has been provided w/Ensure shakes & that he also ate a bowl of cream of wheat this morning. Amy states pt has had continued difficulty & pain while swallowing food despite being given Nystatin oral solution & throat spray. Yoselyn states that she spoke w/Chao & pt separately about continuing the pt's regular diet order but instructed the pt & Chao to indicate "ground or pureed" next to the item they chose if the pt didn't think they could tolerate it in regular form. Yoselyn was doing this approach vs. changing his diet to "soft" so that pt had more options, etc. Yoselyn states she also wrote an order for 'no added sugar shakes' this past week but that the order still needed to be signed by the physician. Yoselyn feels like she was very clear w/her communication to the pt & to Chao but obviously communication/comprehension could be improved. Chao mentioned that pt may be depressed or that there may be some "psychological" reason for pt's continued dysphagia/odynophagia & decreased appetite. This CM also spoke w/Enrique, Middle School Sports Coach & the weekend Mgr on Duty at & requested pt's SW follow-up w/pt re:mental health,etc. Overall, pt was brought into the ED by Chao because pt's other son, Sathish Woody ([phone]) who lives in [place], called Dr Young Sommer who saw pt during last admission (& has known pt & family for >25 yrs) & Dr Sommer recommended pt come to the ED today. Pt's listed MDPOA is his other son, Franklyn Woody ([phone]) who lives in [place]. This CM offered to assist w/improving communication re:pt's needs to , providing any new orders, etc. in order for pt to return to (or possibly even a different SNF rehab) but per ED MD, Dr Sommer wants pt to be admitted for further evaluation of his symptoms. Chao states he is flying out tomorrow morning & will be gone for a week. Pt is now on Full Liquid Diet. Videofluoro speech study xray ordered for tomorrow morning. GI consult & Dietary consult ordered, PT/OT/EMBEDDED LINUX ENGINEER ordered. Anticipate pt to stabilize & DC back to or other SNF rehab. CM to follow. Date Signed: 06/25/2018 02:45 PM Electronically Signed By:Emy Hannon RN [facility] Progress Note CM Note CM Note Notes: CM spoke to EDVORA Durán and Dr. Dumont regarding d/c POC. Anticipate d/c for tomorrow. CM met w/ pt for dispo planning. Pt would like to return back to [facility] when medically stable. CM spoke to pts son Franklyn. Franklyn reports that it is up to pt if he wants to return back to [facility]. CM sent updates. CM to follow. Plan: [facility] Date Signed: 06/26/2018 04:26 PM Electronically Signed By:LION Craig [facility] JSOELUIS Progress Note CM Note CM Note Notes: Pt will dc to [facility] when medically stable. Per , they have auth. DC Plan: [facility] Date Signed: 06/28/2018 05:00 PM Electronically Signed By:Susy Khanna RN Case Management Discharge Plan Note Case Management Discharge Discharge Order Complete? Answers: Yes Patient to Obtain Answers: Other Notes: [facility] Medications Transportation Arranged Answers: Other Notes: from [facility] w/c van arranged by [facility] Faxed Final Orders Answers: Yes Notes: to [facility] Agency/Facility Transfer Answers: Yes Notes: to [facility] Report Printed & Faxed to Receiving Agency Discharge Comments Notes: 06/29/2018 Case Management Note Faxed final orders to [facility]. Tom arranged transport with from [place]. Pt signed IM. RN called report. Case Management d/c: [facility] Date Signed: 06/29/2018 10:52 AM Electronically Signed By:Kari Meyer RN Intervention Information Intervention Type:*IM-Signed Date of Service:06/29/2018 10:50 AM Patient Type:Observation Staff Member:DEVORA Meyer, Kari Hours: Discipline: Severity: Comment:
[2018-06-29] MEDS ORDERED: RANITIDINE SYRUP 15 MG/1 ML UDSYR PO SCH (21:00)
[2018-06-29] MEDS ORDERED: PANTOPRAZOLE SODIUM 40 MG TAB PO SCH (21:00)
--- NOTE | 2018-06-30 11:03 | PDMN ---
Medical Necessity Medical necessity: Change to inpt as of 06/28/18 @ 19:07. Pt meets inpt criteria per MD order and [facility] M-550, Esophageal Disease. Pt w/hx ulcerative colitis and ileostomy, bladder cancer, and COPD initially admitted w/acute dysphagia, upgraded to inpt for ongoing dysphagia/pain swallowing/poor oral intake and weakness, further eval needed, EGD shows severe esophagitis and reflux, bx pending, will likely need reva fundoplication surgery, PT/OT. Est LOS>2MN for management of above.
--- NOTE | 2018-07-04 13:08 | GCON ---
HISTORY OF PRESENT ILLNESS: Patient is an 82-year-old male, well-known to me, who was recently disch arged after a bout of abdominal pain and possible perforation which turned out to be negative. He barker s a known history of ulcer colitis with a functioning ileostomy in the right lower quadrant. He has had ongoing failure to thrive with weight loss and abdominal pain. He was returned to the hospital a t this point because of difficulty swallowing and inability to eat at the assisted. He has had n o aspiration symptoms but describes it is very painful to swallow food and he is not getting soft tawanda d at the assisted. MEDICATIONS: Include Zocor, Singulair, Synthroid, Cepacol lozenges. ALLERGIES: Piperacillin and sulfa. PAST MEDICAL HISTORY: Includes total colectomy with ileostomy. He also has COPD, type 2 diabetes, h yperlipidemia, some mild chronic renal insufficiency, and a history of bladder cancer. FAMILY HISTORY: Noncontributory. SOCIAL HISTORY: Reveals he is an ex-smoker. REVIEW OF SYSTEMS: Reveals no other new findings on a full 10-point review except as related to the HPI. PHYSICAL EXAMINATION: GENERAL: Reveals an alert, cooperative, 82-year-old male in no acute distress . He does appear to be malnourished. VITAL SIGNS: Afebrile. HEENT: Reveals him to be nonicteric with EOMs intact. There are no oral lesions. Occlusion is normal. NECK: Supple and nontender with out adenopathy or thyromegaly. RESPIRATORY: Chest reveals symmetrical breath sounds. No chest tend erness. CARDIAC: Reveals a regular rhythm. ABDOMEN: Soft, scaphoid, almost cachectic. He has no real peritoneal or abdominal tenderness. His ileostomy appears to be functioning well. There are no obvious hernias. GENITALIA: Normal. EXTREMITIES: Reveal full range of motion. Full pulses. [place] ROLOGIC: Physiologic and symmetric. PSYCH: Reveals him to be alert, oriented, and cooperative. IMPRESSION: Dysphagia as possibly relates to gastroesophageal reflux disease and/or esophagitis or p ossibly upper esophageal spasm and difficulties. He will need a Gastrointestinal evaluation, includi ng endoscopy and/or a swallow evaluation. He has had a previous endoscopy, but the results are not k nown to me at this time. PLAN: Would be a swallow eval, possible upper GI, and probable GI consult for EGD. Risks and option s have been fully discussed with the patient. /[id number]/MODL
== END 2018-06-29 11:15 | DRG 392 ==
LOC: F3E 13:48 → OBSVTOIN 06-28 19:07
PROVIDERS: ADMIT Internal Medicine; ATTEND Internal Medicine
PROC: 0DB18ZX Excision of Upper Esophagus, Via Natural or Artificial Opening Endoscopic, Diagnostic (ICD-10-PCS; principal; 2018-06-27 08:30)
PROC: 0DB38ZX Excision of Lower Esophagus, Via Natural or Artificial Opening Endoscopic, Diagnostic (ICD-10-PCS; principal; 2018-06-27 08:30)
DX: K21.0 Gastro-esophageal reflux disease with esophagitis (principal); E46 Unspecified protein-calorie malnutrition; J44.9 Chronic obstructive pulmonary disease, unspecified; E11.22 Type 2 diabetes mellitus with diabetic chronic kidney disease; N18.9 Chronic kidney disease, unspecified; E03.9 Hypothyroidism, unspecified; R53.1 Weakness; E78.5 Hyperlipidemia, unspecified; Z93.2 Ileostomy status; Z90.49 Acquired absence of other specified parts of digestive tract; Z85.51 Personal history of malignant neoplasm of bladder
CPT/HCPCS: 82435-PO; 82565-PO; 82947-PO; 84132-PO; 84295-PO; 84520-PO; 85014-PO; 92526-GN; 92610-GN; 92611-GN; 97116-GP; 97161-GP; 97165-GO; G0378; G8978-GP-CJ; G8979-GP-CI; J1650; J2250; J3010

== ENCOUNTER 2018-07-26 12:07 | Inpatient (IN) | payer OTHER ==
[2018-07-26] MEDS ORDERED: VANCOMYCIN PHARMACY TO DOSE MISC ONE (13:02)
--- NOTE | 2018-07-26 13:22 | PDHPUP ---
History & Physical Update H&P update statement: This history and physical update is based on an assessment of the patient which was completed after admission or registration (within 24 hours), but prior to the surgery/procedure. H&P update: H&P reviewed & patient examined, no change in patient's condition since H&P completed
[2018-07-26] MEDS ORDERED: BUPIVACAINE 0.5% 30 ML SDV ONE (13:26)
[2018-07-26] MEDS ORDERED: LIDOCAINE 2% 5 ML SDV ONE (13:34)
[2018-07-26] MEDS ORDERED: PROPOFOL/EMULSION 500 MG/50 ML BOTTLE IV ONE (13:34)
[2018-07-26 14:26] LABS: PLATELET COUNT 349 10^3/uL (150-400)
[2018-07-26] MEDS ORDERED: LR 1,000 ML IV ONE (14:40)
[2018-07-26] MEDS ORDERED: VANCOMYCIN 1.5 GM in D5W 250 ML IV ONE (15:00)
--- NOTE | 2018-07-26 15:26 | PDANEPAE ---
ANE Past Medical History - Cardiovascular History Hx Hypertension: No Hx Chest Pain: No Hx Coronary Artery / Peripheral Vascular Disease: No - Pulmonary History Hx COPD: No Hx Oxygen in Use at Home: No Hx Sleep Apnea: No - Neurologic History Hx Cerebrovascular Accident: No Hx Seizures: No Hx Dementia: No - Endocrine History Hx Diabetes: No Hypothyroid: Yes - Renal History Hx Renal Disorders: No - Liver History Hx Hepatic Disorders: No - Neurological & Psychiatric Hx Hx Neurological and Psychiatric Disorders: No - Cancer History Hx Cancer: Yes Cancer History Comment: bladder - Congenital Disorder History Hx Congenital Disorders: No - GI History Hx Gastrointestinal Disorders: Yes Gastrointestinal History Comment: Severe dysphagia - Other Health History Other Health History: stomach lining irritation - Chronic Pain History Chronic Pain: No - Surgical History Prior Surgeries: bladder cancer removal, ANE Review of Systems Review of Systems: - Exercise capacity METS (RN): 2 METS ANE Patient History - Allergies Allergies/Adverse Reactions: piperacillin sodium [From Zosyn] Allergy (Unknown, Verified 09/05/10 18:22) Hives tazobactam sodium [From Zosyn] Allergy (Unknown, Verified 09/05/10 18:22) Hives Sulfa (Sulfonamide Antibiotics) Allergy (Verified 02/08/17 06:19) - Home Medications Home Medications: Simvastatin [Zocor] 20 mg PO HS 05/11/16 [Last Taken 06/24/18 21:00] Montelukast Sodium [Singulair 10 mg (*)] 10 mg PO DAILY@1800 02/08/17 [Last Taken 06/25/18 08:00] Levothyroxine [Synthroid 100 mcg (*)] 100 mcg PO DAILY06 06/20/18 [Last Taken 08:00] Benzocaine/Menthol 15/ [Cepacol Lozenge] 1 ea PO TID PRN 06/25/18 [Last Taken Unknown] Phenol [Chloraseptic spray (*)] 1 spray PO DAILY PRN 06/25/18 [Last Taken Unknown] - NPO status NPO Since - Liquids (Date): 07/25/18 NPO Since - Liquids (Time): 20:00 NPO Since - Solids (Date): 07/25/18 NPO Since - Solids (Time): 20:00 - Smoking Hx Smoking Status: Former smoker - Family Anes Hx Family Hx Anesthesia Complications: none ANE Labs/Vital Signs - Labs Result Diagrams: 07/26/18 14:00 07/26/18 14:00 - Vital Signs Blood Pressure: 115/74 Heart Rate: 113 Respiratory Rate: 16 O2 Sat (%): 93 Height: 172.72 cm Weight: 111 kg ANE Physical Exam - Airway Neck exam: FROM Mallampati Score: Class 1 Mouth exam: normal dental/mouth exam - Pulmonary Pulmonary: no respiratory distress, no rales or rhonchi, clear to auscultation - Cardiovascular Cardiovascular: regular rate and rhythym - ASA Status ASA Status: II ANE Anesthesia Plan Anesthesia Plan: GA with mask
[2018-07-26] MEDS ORDERED: ROCURONIUM 100 MG/10 ML VIAL ONE (15:35)
[2018-07-26] MEDS ORDERED: ONDANSETRON 4 MG/2 ML VIAL ONE (15:35)
[2018-07-26] MEDS ORDERED: fentaNYL 100 MCG/2 ML INJ ONE (15:35)
[2018-07-26] MEDS ORDERED: oxyCODONE IR 5 MG TAB PO PRN (15:58)
[2018-07-26] MEDS ORDERED: METOCLOPRAMIDE 10 MG/2 ML VIAL IVP PRN (15:58)
[2018-07-26] MEDS ORDERED: HYDROmorphONE/DILAUDID 2 MG/ML INJ IVP PRN (15:58)
[2018-07-26] MEDS ORDERED: fentaNYL 100 MCG/2 ML INJ IVP PRN (15:58)
[2018-07-26] MEDS ORDERED: DEXAMETHASONE 4 MG/ML VIAL IVP PRN (15:58)
[2018-07-26] MEDS ORDERED: LR 500 ML IV PRN (15:58)
[2018-07-26] MEDS ORDERED: PROMETHAZINE HCL 25 MG/ML INJ IVP PRN (15:58)
[2018-07-26] MEDS ORDERED: ONDANSETRON 4 MG/2 ML VIAL IVP PRN ×2 (15:58→16:48)
[2018-07-26] MEDS ORDERED: PHENYLEPHRINE HCL 100 MCG/ML SYR IVP PRN (15:58)
[2018-07-26] MEDS ORDERED: NALOXONE HCL 0.4 MG/ML INJ IVP PRN (15:58)
[2018-07-26] MEDS ORDERED: SUGAMMADEX SODIUM 200 MG/2 ML VIAL IVP ONE (16:18)
[2018-07-26] MEDS ORDERED: ONDANSETRON DISINTEGRATING 4 MG TAB PO PRN (16:48)
[2018-07-26] MEDS ORDERED: ACETAMINOPHEN 325 MG TAB PO PRN (16:49)
--- NOTE | 2018-07-26 17:34 | POSTANESTH ---
Post Anesthetic Evaluation Cardiovascular Status: Normal, Stable Respiratory Status: Normal, Stable Level of Consciousness/Mental Status: Can Participate in Eval Pain Control: Adequate, Prn Tx Ordered Nausea/Vomiting Control: Adequate, Prn Tx Ordered Complications Possibly Related to Anesthesia: None Noted
--- NOTE | 2018-07-26 19:49 | WOCRNPDOC ---
WOCRN Advanced Assessment Note - Skin Integrity Problem, Advanced Assess Sacrum Pressure Injury Dressing Type: Open to Air Exudate Amount: None Integumentary Issue Intervention: Dressing Applied Parisa Wound Tissue: Blanching, Erythema, Non-blanching, Xerotic, Painful/Tender Wound Bed Constitution: Granulation Tissue (80%), Adhered Slough (20%) Site Measurement - Head-to-Toe Length X Width X Depth (cm): 1.7x1.2x0.3 Pressure Injury Stage: Stage 3 Pressure Injury Present on Admit: Yes Skin Integrity Problem Comment: Scab mechanically removed to reveal wound depth. This full thickness wound appears to have been alternately trying to heal and then re-opening over at least the last few weeks. There is no significant scarring around it, however the skin is quite dry. Education with patient on the need for offloading of area at all times for healing to occur. Patient seemed to understand pressure injury etiology and treatment, and affirrmed this with nodding his head. Wound care will follow.
[2018-07-26] MEDS: D5W 1/2 NS 1,000 ML IV SCH (20:14)
[2018-07-26] MEDS: oxyCODONE IR 5 MG TAB PO PRN (20:48)
[2018-07-26] MEDS: METOCLOPRAMIDE 5 MG TAB PO SCH (20:49)
[2018-07-27] MEDS: oxyCODONE IR 5 MG TAB PO PRN ×2 (02:20→23:20)
[2018-07-27] MEDS: METOCLOPRAMIDE 5 MG TAB PO SCH ×4 (05:28→20:39)
[2018-07-27] MEDS ORDERED: PHENOL 177 ML THROAT SPRAY PO PRN (08:18)
[2018-07-27] MEDS ORDERED: CEPACOL LOZENGE PO PRN (08:18)
[2018-07-27] MEDS ORDERED: ACETAMINOPHEN 650 MG/20.3 ML UDCUP PO PRN (08:18)
[2018-07-27] MEDS: FERROUS SULFATE 325 MG TAB PO SCH (09:41)
[2018-07-27] MEDS: FLUCONAZOLE 100 MG TAB PO SCH (09:41)
[2018-07-27] MEDS: LEVOTHYROXINE 100 MCG TAB PO SCH (09:41)
[2018-07-27] MEDS: PANTOPRAZOLE SODIUM 40 MG TAB PO SCH ×2 (09:41→20:26)
[2018-07-27] MEDS: MBX SOLN 30 ML BOTTLE PO PRN ×2 (09:42→20:40)
[2018-07-27] MEDS: LIDOCAINE 4%/MENTHOL 1% PATCH TD SCH ×2 (09:42→09:46)
--- NOTE | 2018-07-27 11:02 | ASMTCAGE ---
CAGE Do you feel you ought to Answers: No cut down on your drinking or drug use? Do people annoy you by Answers: No criticizing your drinking or drug use? Do you feel guilty about Answers: No your drinking or drug use? Do you drink or use drugs Answers: No first thing in the morning (Eye Detacher)? Additional Comments Pt does not drink alcohol or use drugs. Date Signed: 07/27/2018 11:01 AM Electronically Signed By:Kari Meyer RN
--- NOTE | 2018-07-27 11:05 | ASMTCMCOM ---
CM Note CM Note Notes: 07/27/2018 Case Management Note Pt admitted for feeding tube placement. Pt admitted from [facility]. Faxed updates to [facility]. Met w/pt and son Aden [phone] to discuss discharge needs. Pt prefers to return to [facility]. Completed CAGE. Discussed benefits of palliative care. Pt and son in agreement. After discussion pt prefers referral to [facility]. Phone call to Arabella DEL TORO with Dr. Sommer for Palliative order. Case Management d/c poc: return to [facility] SNF Case Management to follow. Date Signed: 07/27/2018 11:05 AM Electronically Signed By:Kari Meyer RN
--- NOTE | 2018-07-27 11:53 | SOAPPROG ---
SOAP Progress Note Assessment/Plan: Assessment: 82 y/o M with ileostomy s/p G-tube placement for dysphagia, anorexia and ftt POD #1 S: Doing well overall. Tolerating trickle feeds, but endorses mild nausea. No vomiting. Incisional pain well controlled. Good ostomy output. O: Alert Afebrile VSS RRR ctab, no increased WOB Abdomen: soft, nontender, nondistended. +BS. incision site cdi. G-tube secured in place. Ostomy with liquid stool in appliance. Plan: Increase tube feeding rate to 30ml/hr. 07/27/18 11:50 Objective: Vital Signs Temp Pulse Resp BP Pulse Ox 36.4 C 103 H 16 96/65 L 91 L 07/27/18 11:09 07/27/18 11:09 07/27/18 11:09 07/27/18 11:09 07/27/18 11:09 Laboratory Results 07/26/18 14:00 07/26/18 14:00 07/26/18 07/27/18 07/28/18 05:59 05:59 05:59 Intake Total 1900 Output Total 310 100 Balance 1590 -100 ICD10 Worksheet Patient Problems: Problems Problem Status Onset Diaphoresis Acute Dysphagia Acute Failure to thrive in adult Acute Hypothyroid Acute Odynophagia Acute Vomiting Acute
--- NOTE | 2018-07-27 13:29 | PDMN ---
Medical Necessity Medical necessity: Change to inpt as of 07/26/18 @ 16:45. Pt meets inpt criteria per MD order and General Surgery GRG, Gastrostomy, open; with construction of gastric tube, Medicare inpt only list. 82 y/o w/dysphagia, anorexia, and FTT, admitted for G-tube placement and post-op care. POD#1, tolerating trickle feeds, some nausea. Est LOS>2MN for ongoing eval/management of above.
[2018-07-27] MEDS: D5W 1/2 NS 1,000 ML IV SCH (16:25)
[2018-07-27] MEDS: MONTELUKAST SODIUM 10 MG TAB PO SCH (17:16)
[2018-07-27] MEDS: ATORVASTATIN CALCIUM 10 MG TAB PO SCH (20:39)
[2018-07-27] MEDS: FAMOTIDINE 20 MG TAB PO SCH (20:39)
[2018-07-27] MEDS: MIRTAZAPINE 15 MG TAB PO SCH (20:39)
[2018-07-28] MEDS: D5W 1/2 NS 1,000 ML IV SCH ×4 (02:17→21:23)
[2018-07-28] MEDS: LEVOTHYROXINE 100 MCG TAB PO SCH (05:43)
[2018-07-28] MEDS: METOCLOPRAMIDE 5 MG TAB PO SCH ×4 (05:43→21:06)
[2018-07-28] MEDS: MBX SOLN 30 ML BOTTLE PO PRN ×2 (07:31→12:47)
--- NOTE | 2018-07-28 07:46 | GOP ---
DATE OF OPERATION: 07/26/2018 SURGEON: Monty Sommer MD POCKET SECRETARY ASSEMBLER: Arabella Arechiga NP. PREOPERATIVE DIAGNOSIS: Failure to thrive. POSTOPERATIVE DIAGNOSIS: Failure to thrive. PROCEDURE PERFORMED: Feeding gastrostomy tube. FINDINGS: The patient was found to have a large stomach with a partial hiatal hernia. DESCRIPTION OF PROCEDURE: The patient was taken to the operating room where he received satisfactory general endotracheal anesthesia. He was placed in supine position, prepped and draped in the usual sterile fashion. Upper abdominal midline incision was made, carried through the linea alba. Abdomen was entered. Some adhesions were taken down. The stomach was grasped with a [place] clamp and retr acted back down into the abdomen, and a 24-[place] G-tube was brought in through a separate stab incis ion on the anterior abdominal wall. Two concentric pursestrings were placed in the anterior wall of the stomach. The gastrotomy was placed in the stomach. The balloon was inflated, and the pursestrin g sutures were tied, creating an inkwell around the gastrostomy tube. The stomach was pulled up to t he abdominal wall and secured in place with interrupted 2-0 silk sutures. The tube was irrigated and flowed easily. The wound was infiltrated with 0.5% Marcaine, closed with a running 0 PDS suture for the linea alba and a 4-0 Monocryl subcuticular stitch for the skin. It was then dressed with Dermab ond. He tolerated the procedure well, was taken to the recovery room in good condition. There were no com plications. /[id number]/MODL
[2018-07-28] MEDS: FERROUS SULFATE 325 MG TAB PO SCH (10:23)
[2018-07-28] MEDS: LIDOCAINE 4%/MENTHOL 1% PATCH TD SCH (10:23)
[2018-07-28] MEDS: PANTOPRAZOLE SODIUM 40 MG TAB PO SCH ×2 (10:24→21:07)
[2018-07-28] MEDS: FLUCONAZOLE 100 MG TAB PO SCH (11:55)
[2018-07-28] MEDS: HYDROmorphONE/DILAUDID 1 MG/ML INJ IVP PRN ×2 (12:46→18:34)
[2018-07-28] MEDS: oxyCODONE IR 5 MG TAB PO PRN ×2 (15:28→21:07)
[2018-07-28 16:04] LABS: PLATELET COUNT 234 10^3/uL (150-400)
[2018-07-28] MEDS: MONTELUKAST SODIUM 10 MG TAB PO SCH (16:54)
[2018-07-28 20:08] VITALS: BP 105/76
[2018-07-28] MEDS: FAMOTIDINE 20 MG TAB PO SCH (21:07)
[2018-07-28] MEDS: ATORVASTATIN CALCIUM 10 MG TAB PO SCH (21:07)
[2018-07-28] MEDS: MIRTAZAPINE 15 MG TAB PO SCH (21:07)
[2018-07-29] MEDS ORDERED: EPINEPHrine 1 MG/10 ML SYR IVP ONE (00:15)
--- NOTE | 2018-07-29 00:25 | SOAPPROG ---
SOAP Progress Note Assessment/Plan: Assessment: Called to bedside Code in progress Vitals were performed about 1 hour ago Staff went to bedside and patient found without a pulse CPR in progress when I arrived. Asystole when no CPR Coffee ground emesis with compressions No signs of life and code was called Plan: 07/29/18 00:23 07/29/18 00:46 Correction - nursing was in room about 1 hour ago to clean him up. Patient was talking at the time and alert. Returned to do vitals and was found without a pulse. Objective: Vital Signs Temp Pulse Resp BP Pulse Ox 37.4 C 147 H 18 105/76 90 L 07/28/18 20:00 07/28/18 20:00 07/28/18 20:00 07/28/18 20:00 07/28/18 20:00 Laboratory Results 07/28/18 15:12 07/26/18 14:00 07/27/18 07/28/18 07/29/18 05:59 05:59 05:59 Intake Total 1900 1620 1275 Output Total 310 300 600 Balance 1590 1320 675 ICD10 Worksheet Patient Problems: Problems Problem Status Onset Diaphoresis Acute Dysphagia Acute Failure to thrive in adult Acute Hypothyroid Acute Odynophagia Acute Vomiting Acute
--- NOTE | 2018-07-29 00:45 | HOSPPROG ---
Hospitalist Progress Note Assessment/Plan: Code blue called; patient found unresponsive after >1 hour since last seen normal. Compressions started and 2 rounds of Epi administered. Coffee ground emesis seen from mouth with compressions. Patient in asystole throughout. Noting no signs of return of circulation and persistent asystole, resuscitation efforts were terminated and time of pronounced. Objective: Vital Signs Temp Pulse Resp BP Pulse Ox 37.4 C 147 H 18 105/76 90 L 07/28/18 20:00 07/28/18 20:00 07/28/18 20:00 07/28/18 20:00 07/28/18 20:00 Laboratory Results 07/28/18 15:12 07/26/18 14:00 07/27/18 07/28/18 07/29/18 05:59 05:59 05:59 Intake Total 1900 1620 1562 Output Total 310 300 600 Balance 1590 1320 962 ICD10 Worksheet Patient Problems: Problems Problem Status Onset Hypothyroid Acute Diaphoresis Acute Vomiting Acute Odynophagia Acute Dysphagia Acute Failure to thrive in adult Acute
--- NOTE | 2018-07-29 00:53 | EDPHY ---
Inpatient Procedure Narrative: INTUBATION Procedure: Rapid sequence intubation. Indication for the procedure was airway protection, respiratory failure. The patient was preoxygenated with 100% oxygen by face mask and nasal cannula at 15 L. The patient was orally endotracheally intubated using the glide scope with a 7.5 ETT. Tracheal intubation was confirmed with misting on the tube; breath sounds were auscultated equally bilaterally; appropriate color change with [place] Tidal CO2 detector. The procedure was performed by myself.
--- NOTE | 2018-07-29 15:09 | SOAPPROG ---
SOAP Progress Note Assessment/Plan: Assessment: SEEN YESTERDAY MORNING AT 11:00 A.M. WITH MY NURSE PRACTITIONER VALERIANO BERRY PATIENT COMPLAINING OF SOME NAUSEA BUT STILL EATING LIQUID FLUID/ TUBE FEEDINGS HAD BEEN HELD SOME GASTRITIS TYPE LOOKING FLUID COMING OUT OF THE NG TUBE AFEBRILE/VITAL SIGNS STABLE OVERALL UNCHANGED FROM PREOP STATUS, STILL WEAK, CACHECTIC AND NAUSEATED NONICTERIC/CHEST CLEAR/COR REGULAR TACHYCARDIA AROUND 100/ABDOMEN SOFT NONTENDER WITH WELL-HEALING MIDLINE WOUND DECREASED OSTOMY OUTPUT BUT POSITIVE FLATUS AND BOWEL SOUNDS IMPRESSION ILEUS POSSIBLE GASTRITIS AND ESOPHAGITIS HE HAS HAD Plan: PLAN HOLE 2 FEEDINGS FOR NOW 07/29/18 15:06 Objective: Vital Signs Temp Pulse Resp BP Pulse Ox 37.4 C 147 H 18 105/76 90 L 07/28/18 20:00 07/28/18 20:00 07/28/18 20:00 07/28/18 20:00 07/28/18 20:00 Laboratory Results 07/28/18 15:12 07/26/18 14:00 07/28/18 07/29/18 07/30/18 05:59 05:59 05:59 Intake Total 1620 1562 Output Total 300 600 Balance 1320 962 ICD10 Worksheet Patient Problems: Problems Problem Status Onset Diaphoresis Acute Dysphagia Acute Failure to thrive in adult Acute Hypothyroid Acute Odynophagia Acute Vomiting Acute
== END 2018-07-29 00:19 | disposition expired | DRG 326 ==
LOC: F3E 12:07 → OBSVTOIN 16:45 → F3E 18:01
PROVIDERS: ADMIT Surgery; ATTEND Surgery
DX: K21.0 Gastro-esophageal reflux disease with esophagitis (principal); R13.14 Dysphagia, pharyngoesophageal phase; R63.0 Anorexia; R63.4 Abnormal weight loss; K44.9 Diaphragmatic hernia without obstruction or gangrene; L89.153 Pressure ulcer of sacral region, stage 3; J44.9 Chronic obstructive pulmonary disease, unspecified; E11.9 Type 2 diabetes mellitus without complications; E78.5 Hyperlipidemia, unspecified; N18.3 Chronic kidney disease, stage 3 (moderate); I12.9 Hypertensive chronic kidney disease with stage 1 through stage 4 chronic kidney disease, or unspecified chronic kidney disease; E03.9 Hypothyroidism, unspecified; Z85.51 Personal history of malignant neoplasm of bladder; Z90.49 Acquired absence of other specified parts of digestive tract; Z93.2 Ileostomy status; Z87.891 Personal history of nicotine dependence
CPT/HCPCS: 97161-GP; 97165-GO; G8978-GP-CJ; G8979-GP-CI; J1170; J2405; J2704; J3010; J3370